=== PATIENT | male | born 1935 | race Caucasian/White ===

== ENCOUNTER → 2017-03-15 | Outpatient (CLI) | payer MEDICARE, MEDICAID ==
[~2017-03-15] MED LIST: AMOX1TAB16 PO; ASPI81TA2 PO; CALC-747 PO; DOCU100T PO; DRON2.5C11 PO; GUAI600T PO; HYDR-4078 PO; LORA10TA62 PO; OMEP20TA2 PO; ONDA-55 PO; OXYC20TA76 PO; POLY17PO6 PO; PRED5TAB PO; TAMS0.4C47 PO
--- NOTE | 2017-03-15 14:00 | DI ---
Indication: ITS.REASON: C61 PROSTATE CA PROCEDURE: NM BONE SCAN, WHOLE BODY: Encounter: Subsequent Comparison: September 24, 2016 Technique: 27.1 mCi of Tc-99m MDP was administered intravenously. Anterior and posterior planar whole-body and spot images were obtained. FINDINGS: Abnormal distribution of tracer with a "metastatic super scan" appearance. Decreased renal and bladder uptake. Diffuse osseous metastases have worsened since the prior study with larger and more numerous metastatic lesions involving both humeri and femurs. Prominent involvement of the right greater trochanteric area is new. Bilateral rib and vertebral uptake has also progressed in the interval. Areas of calvarial uptake are seen near the vertex. Numerous thoracic and lumbar vertebral bodies show regions of abnormal uptake. Uptake in the left SI joint region and left iliac wing is similar to the prior study. Impression: New and worsening diffuse metastatic disease, greatest in the humeri and femurs. .
== END ==
LOC: IMA 10:02
PROVIDERS: ATTEND Internal Medicine Hematology & Oncology
DX: C61 Malignant neoplasm of prostate (principal); C79.51 Secondary malignant neoplasm of bone
CPT/HCPCS: 78306; A9503

== ENCOUNTER 2017-04-06 07:38 | Observation (INO) | payer MEDICARE, MEDICAID ==
[~2017-04-06] VITALS: Ht 162.6 cm; Wt 58.0 kg
--- OUTSIDE RECORDS SUMMARY | 2017-04-06 07:41 | XMS REPORT | Continuity of Care Document ---
Author Author [facility] Address Unknown Phone Unavailable Support Name Relationship Address Phone DARELL CASTREJON MD Caregiver [address] [place] [address] LEROY FRANCIS Next Of Kin [address] [place] [address] Insurance Providers Payer Name Policy Number Subscriber Name Relationship [employer] Gold Choice [id number] Delma Francis 18 Self / Same As Patient Jessica [employer] [id number] Delma Francis 18 Self / Same As Patient Advance Directives Directive Response Recorded Date/Time Advanced Directives Yes 03/23/17 9:59am Type Durable Power of Leadlighter 03/23/17 9:59am Chief Complaint and Reason for Visit Chief Complaint Eye Complaint Reason for Visit [id number] Problems Active Problems Medical Problem Onset Date Status Stye Unknown Acute Medications Current Home Medications Medication Dose Units Route Directions Days/Qty Instructions Start Date Dronabinol 2.5 Mg 2.5 Mg ORAL Twice A Day 03/23/17 Omeprazole Magnesium 20 Mg 20 Mg ORAL Twice A Day 03/23/17 Oxycodone Hcl 30 Mg 30 Mg ORAL As Needed 03/23/17 Prednisone 5 Mg 5 Mg ORAL Daily 03/23/17 Acetaminophen/Hydrocodone Bitart 1 Ea 1 Tab ORAL As Needed as needed for Pain 03/23/17 Calcium Carbonate/Vitamin D3 1 Each 1 Each ORAL Daily 03/23/17 Loratadine 10 Mg 10 Mg ORAL Daily 03/23/17 Docusate Sodium 100 Mg 200 Mg ORAL As Needed 03/23/17 Aspirin 81 Mg 81 Mg ORAL Daily 03/23/17 Tamsulosin Hcl 0.4 Mg 0.4 Mg ORAL 4X Day Before Meals/At Bedtime 05/04 Polymyxin B Sulfate/Tmp 10 Ml 2-3 Drops OPTHALMIC Four Times Daily 10 03/23/17 Cephalexin Monohydrate 500 Mg 500 Mg ORAL Three Times A Day 21 17 Social History Query Response Start Date Stop Date Smoking Status Never smoker Hospital Discharge Instructions No hospital discharge instructions. Plan of Care Discharge Date 03/23/17 10:38am Disposition 01 HOME OR SELF-CARE Condition at Discharge Stable Instructions/Education Provided Katelynn (Tuckerdeolum) Prescriptions See Medication Section Additional Instructions/Education use the eye drops for 5-7 days. Recheck with eye Dr if not improving within 3-5 days. Continue current meds and treatments as prescribed. Warm moist packs Some of your test results may not be complete prior to your leaving the Emergency Department. The Emergency Department is not authorized to give test results over the phone. Please contact the doctor's office listed in this packet of information for your final results. Follow up with your primary care physician or return to the Emergency Department for worsening or worrisome symptoms. * Emergency Department phone number: [phone], x [phone]* MEDICAL RECORD If you need copies of your X-rays, call [phone]. If you need copies of your medical record, including lab results, a signed authorization for release of records will be required. A telephone call for release of Health Information is not allowed. BILLING Billing can sometimes be confusing and frustrating. To help avoid confusion in the future, please take a moment to acquaint yourself with the billing parties for services. SERVICE BILLING [facility] [employer] Emergency Room Services [facility] Physician Services [facility] X-rays [facility] Patients will receive bills for services from the appropriate provider. If you have any questions about your [facility] bill, our staff will be happy to assist you. Please call [phone], and ask for the billing department. THANK YOU for choosing [facility] as your emergency care provider! Care Plan and Goals ~~Discharge Care Plan~~ Problem: Eye infection/discharge Goal: Both eyes will be free of infection/discharge. Instructions: Use good handwashing before and after working with your eye(s). Take medication(s) as directed. Follow physician discharge instructions. Functional Status No functional status results. Allergies, Adverse Reactions, Alerts No known allergies. Immunizations No immunization records. Vital Signs Acute Vital Signs Vital Response Date/Time Temperature (Fahrenheit) 98.0 03/23/2017 10:38am Pulse 88 bpm 03/23/2017 10:38am Respirations 18 03/23/2017 10:38am Height 5 ft 4 in Weight 130 lb Body Mass Index 22.0 kg/m^2 Results No known relevant diagnostic tests, laboratory data and/or discharge summary. Procedures No known history of procedures. Encounters Encounter Location Arrival/Admit Date Discharge/Depart Date Attending Provider Departed Emergency Room [facility] 03/23/17 9:46am 03/23/17 10:38am DARELL CASTREJON MD Recent Diagnosis
--- OUTSIDE RECORDS SUMMARY | 2017-04-06 07:41 | XMS REPORT | Continuity of Care Document ---
Author Author [facility] Address Unknown Phone Unavailable Support Name Relationship Address Phone ENMANUEL GUERRA MD Caregiver [address] [place] [address] Unavailable ENMANUEL GUERRA MD Caregiver [address] [place] [address] Unavailable JAGDISH BENOIT MD Caregiver [address] [place] [address] Unavailable VILMA LEONG MD Caregiver [address] [place] [address] Unavailable ANA FRANCIS Next Of Kin [address] [place] [address] Insurance Providers Guarantor Delma Francis Address [address] [place] [address] Email DENIED/NO TO PT PORT/NO EMAIL Payer [employer]humana Gold P[employer]s Policy Number [id number] Subscriber's Name Delma Francis Relationship 18 Self Effective Date 15 Advance Directives Directive Response Recorded Date/Time Advanced Directives Type DPOA for Healthcare Unable to Obtain 10/17/16 9:35am Ordered Resuscitation Status Do Not Resuscitate 10/17/16 12:39pm Resuscitation Documents on File No 10/17/16 1:45pm DPOA for Healthcare Only Y DAUGHTER-MJ 10/17/16 1:45pm Living Will No 10/17/16 1:45pm Problems Active Problems Medical Problem Onset Date Status Acute respiratory failure with hypoxia Unknown Resolved Bone metastases Unknown Chronic Chronic back pain Unknown Chronic Chronic steroid use Unknown Chronic Edema of upper extremity Unknown Acute History of kidney stones Unknown Resolved Hypocalcemia Unknown Acute Hypokalemia Unknown Resolved Immunocompromised patient Unknown Acute Macrocytic anemia Unknown Prostate cancer Unknown Chronic Septic shock Unknown Resolved Severe sepsis Unknown Acute Tachycardia Unknown Resolved Past Problems Medical Problem Onset Date Sepsis Unknown Medications Current Home Medications Medication Dose Units Route Directions Days Qty Instructions Start Date Amox Tr/Potassium Clavulanate (Amox Tr-K Clv 875-125 Mg Tab) 875 Mg Tablet 875 Mg Oral Twice A Day for Infection 7 10/23/16 Aspirin 81 Mg Tab.chew 81 Mg Oral Daily 10/17/16 Calcium Carbonate/Vitamin D3 (Calcium 600 + Vit D 400 Tablet) 1 Each Tablet 1 Tab Oral Twice A Day 100 Tablet 10/23/16 Docusate Sodium 100 Mg Tablet 200 Mg Oral Daily 10/17/16 Dronabinol 2.5 Mg Capsule 2.5 Mg Oral Twice A Day 10/17/16 Guaifenesin (Mucinex) 600 Mg Tbbp.12hr 600 Mg Oral Twice A Day for Congestion 10 10/23/16 Hydrocodone/Acetaminophen ([place] 10-325 Tablet) 10-325 Tablet 1 Tab Oral Four Times Daily 10/17/16 Loratadine (Claritin) 10 Mg Tablet 10 Mg Oral Daily 10/17/16 Omeprazole Magnesium (Prilosec Otc) 20 Mg Tablet.dr 20 Mg Oral Twice A Day 10/17/16 Ondansetron Hcl 4 Mg Tablet 4 Mg Oral Q6h/0300,0900,1500,2100 as needed for Nausea 30 Tablet 10/23/16 Oxycodone Hcl (Oxycodone Hcl Er) 20 Mg Tab.er.12h 20 Mg Oral Twice A Day 10/17/16 Polyethylene Glycol 3350 (Miralax) 17 Gm Powd.pack 17 G Oral Daily 10/17/16 Prednisone 5 Mg Tablet 5 Mg Oral Twice A Day 10/17/16 Tamsulosin Hcl 0.4 Mg Cap.er.24h 0.4 Mg Oral Bedtime 10/17/16 Past Home Medications Medication Directions Ordered Status Calcium Carbonate/Vitamin D3 (Calcium 600 + Vit D 200 Tablet) 1 Each Tablet, 1 Tab Oral Daily 10/17/16 Discontinued Social History Social History Problem Response Recorded Date/Time Onset Date Status Chronic narcotic use 10/17/2016 4:57pm Unknown Active Reason for Hospitalization Sepsis 10/23/2016 3:09pm Not Applicable Not Applicable Hx Alcohol Use No 10/17/2016 10:13am Not Applicable Not Applicable Has the pt used tobacco in the last 12 months No 10/17/2016 1:39pm Not Applicable Not Applicable Query Response Start Date Stop Date Smoking Status Never smoker Hospital Discharge Instructions Instructions: Care Instructions: Reason for Hospitalization: Sepsis I was in the hospital because (patient own words): UNABLE TO SAY Discharge Diet: Regular Discharge Activity: As tolerated - O2 at 2L with activities Follow Up Appointments: Dr Avila on 10/24/2016 Dr Leong in 1 week [phone] 10/30/16 10:30 WITH DU. Pending Lab / Results: Follow up w/ your PCP Patient Instructions: Mucinex 600mg twice a day for 5 days, then as needed for congestion. Start Augmentin this evening Deep breathing excersises 6 times a day. May follow up on ECHO report with Dr Leong Wound/Incision Care: n/a Durable Medical Equipment: O2 at 2L with ambulation Pain Management/Treatment: Continue prior pain medications Expected Signs/Symptoms: Improvement of respiratory and functional status Notify Physician If: Temp >100.4. Intractable n/v. During Business Hours:: Please call the physician's office at After Business Hours:: Please call [phone] and have the tamper operator page the physician. Condition at time of discharge: Good Plan of Care Discharge Date 10/23/16 4:53pm Disposition 01 DISCHARGED HOME, SELF-CARE Instructions/Education Provided DI for Sepsis -- Adult Prescriptions See Medication Section Care Plan and Goals See Discharge Instructions Section Functional Status Query Response Date Recorded Mobility Status Ambulatory October 23, 2016 3:09pm Assistive Devices None October 23, 2016 3:09pm Activity Limitations Weakness Fatigue October 23, 2016 3:09pm Feeding Ability Independent October 23, 2016 3:09pm Toileting Ability Independent October 23, 2016 3:09pm Grooming Ability Independent October 23, 2016 3:09pm Dressing Ability Independent October 23, 2016 3:09pm Driving Ability Independent October 23, 2016 3:09pm Housework Ability Assist October 23, 2016 3:09pm Meal Preparation Ability Assist October 23, 2016 3:09pm Stair Climbing Ability Assist October 23, 2016 3:09pm Ability to complete ADL's impeded by No change October 23, 2016 3:09pm Cognitive/Perceptual Impairments Impaired vision October 23, 2016 3:09pm Visual Assistive Devices Glasses October 23, 2016 1:25pm Allergies, Adverse Reactions, Alerts Allergen Type Severity Reaction Status Last Updated Iodinated Contrast Media - IV Dye Allergy Unknown Active 10/17/16 Immunizations Query Response on File Recorded Date/Time Hx Influenza Vaccination No 10/17/16 1:39pm Hx Pneumococcal Vaccination UNKNOWN 10/17/16 1:39pm Hx Influenza Vaccination No 10/17/16 1:39pm Vital Signs Acute Vital Signs Vital Response Date/Time Temperature (Fahrenheit) 99.0 deg F (96.8 - 99.1) 10/23/2016 8:00am Temperature (Calculated Celsius) 37.12371 degrees C (36.0 - 37.3) 10/23/2016 8:00am Pulse Rate (adult) 113 bpm (60 - 100) 10/23/2016 11:35am Respiratory Rate 17 breaths/min (10 - 20) 10/23/2016 11:35am O2 Sat by Pulse Oximetry 91 % (90 - 100) 10/23/2016 11:35am Oxygen Delivery Method Room Air 10/23/2016 5:52am Oxygen Delivery Method Room Air 10/23/2016 11:35am Oxygen Flow Rate 1.00 L/min 10/18/2016 7:30am Blood Pressure 107/65 mm Hg 10/23/2016 11:35am Blood Pressure Source Arterial Line 10/23/2016 8:00am Height (Feet) 5 feet 10/23/2016 1:08pm Height (Inches) 7.00 inches 10/23/2016 1:08pm Weight (Kilograms) 58.400 kg 10/23/2016 8:00am Body Mass Index (BMI) 20.0 10/17/2016 1:37pm Results Laboratory Results Test Name Result Units Flags Reference Collection Date/Time Result Date/ Time Comments White Blood Count 13.2 T/MM3 D H 4.5-11.0 10/23/2016 4:33am 10/23/2016 5: 12am Red Blood Count 3.06 M/MM3 L 4.50-5.90 10/23/2016 4:33am 10/23/2016 5: 12am Hemoglobin 10.0 GM/DL L 13.5-17.5 10/23/2016 4:33am 10/23/2016 5:12am Hematocrit 30.3 % L 41-53 10/23/2016 4:33am 10/23/2016 5:12am Mean Corpuscular Volume 99.0 UM3 80-100 10/23/2016 4:33am 10/23/2016 5: 12am Mean Corpuscular Hemoglobin 32.7 UUG 26-34 10/23/2016 4:33am 2015 5:12am Mean Corpuscular Hemoglobin Concent 33.0 GM/DL 31-37 10/23/2016 4:3310/23/2016 5:12am RDW Standard Deviation 55.2 FL H 36.9-50.2 10/23/2016 4:3310/23/2016 5:12am Platelet Count 299 T/MM3 130-400 10/23/2016 4:3310/23/2016 5:12am Mean Platelet Volume 9.2 UM3 L 9.4-12.4 10/23/2016 4:3310/23/2016 5: 12am Neutrophils (%) (Auto) 72.7 % H 33-66 10/23/2016 4:3310/23/2016 5: 12am Lymphocytes (%) (Auto) 16.0 % L 23-45 10/23/2016 4:3310/23/2016 5: 12am Monocytes (%) (Auto) 10.1 % H 0-9.0 10/23/2016 4:3310/23/2016 5:12am Eosinophils (%) (Auto) 0.3 % 0-4 10/23/2016 4:3310/23/2016 5:12am Basophils (%) (Auto) 0.1 % 0-2 10/23/2016 4:3310/23/2016 5:12am Immature Granulocyte % (Auto) 0.8 % H 0.0-0.5 10/23/2016 4:332015 5:12am Absolute Neutrophils (auto) 9.6 T/MM3 H 1.8-7.7 10/23/2016 4:332015 5:12am Absolute Lymphocytes (auto) 2.1 T/MM3 1-4.8 10/23/2016 4:332015 5:12am Absolute Monocytes (auto) 1.3 T/MM3 H 0-0.8 10/23/2016 4:332015 5:12am Absolute Eosinophils (auto) 0.0 T/MM3 0-0.5 10/23/2016 4:332015 5:12am Absolute Basophils (auto) 0.0 T/MM3 0-0.2 10/23/2016 4:3310/23/2016 5:12am Absolute Immature Granulocyte (auto 0.10 T/MM3 H 0.00-0.03 10/23/2016 4: 33am 10/23/2016 5:12am Neutrophils % (Manual) 77.1 % H 33-66 10/19/2016 1:55am 10/19/2016 2: 07am Band Neutrophils % 6.0 % 0-6 10/18/2016 4:55am 10/18/2016 6:34am Lymphocytes % (Manual) 10.4 % L 23-45 10/19/2016 1:55am 10/19/2016 2: 07am Monocytes % (Manual) 12.0 % H 0-9.0 10/19/2016 1:55am 10/19/2016 2:07am Eosinophils % (Manual) 0.0 % 0-4 10/19/2016 1:55am 10/19/2016 2:07am Basophils % (Manual) 0.0 % 0-2 10/19/2016 1:55am 10/19/2016 2:07am Metamyelocytes % 1.0 % H 0-0 10/18/2016 4:55am 10/18/2016 6:34am Band Neutrophils # 0.5 T/MM3 10/18/2016 4:55am 10/18/2016 6:34am Absolute Neutrophils (Manual) 6.6 T/MM3 1.8-7.7 10/19/2016 1:55am 10/19 2:07am Lymphocytes # (Manual) 0.9 T/MM3 L 1-4.8 10/19/2016 1:55am 10/19/2016 2: 07am Monocytes # (Manual) 1.0 T/MM3 H 0-0.8 10/19/2016 1:55am 10/19/2016 2: 07am Eosinophils # (Manual) 0.0 T/MM3 0-0.5 10/19/2016 1:55am 10/19/2016 2: 07am Basophils # (Manual) 0.0 T/MM3 0-0.2 10/19/2016 1:55am 10/19/2016 2: 07am Metamyelocytes # 0.1 T/MM3 10/18/2016 4:55am 10/18/2016 6:34am Red Cell Morphology Comment NORMAL 10/19/2016 1:55am 10/19/2016 2: 07am Anisocytosis 1+ 10/18/2016 4:55am 10/18/2016 6:34am Icterus Index < 2 0-7 10/23/2016 4:33am 10/23/2016 5:26am Chemistry Specimen Hemolysis < 15 0-25 10/23/2016 4:33am 10/23/2016 5 :26am 0-25: Specimen Exhibited No Hemolysis. Turbidity < 20 0-20 10/23/2016 4:33am 10/23/2016 5:26am Sodium Level 142 MEQ/L 134-144 10/23/2016 4:33am 10/23/2016 5:26am Potassium Level 3.4 MEQ/L L 3.6-5 10/23/2016 4:33am 10/23/2016 5:26am Chloride Level 103 MEQ/L 98-107 10/23/2016 4:33am 10/23/2016 5:26am Carbon Dioxide Level 28 MEQ/L 22-30 10/23/2016 4:33am 10/23/2016 5: 26am Anion Gap 11 MEQ/L 5-15 10/23/2016 4:33am 10/23/2016 5:26am Blood Urea Nitrogen 17.0 MG/DL 9-20 10/23/2016 4:33am 10/23/2016 5: 26am Creatinine 0.6 MG/DL L 0.8-1.5 10/23/2016 4:33am 10/23/2016 5:26am BUN/Creatinine Ratio 28 RATIO H 6-26 10/23/2016 4:33am 10/23/2016 5: 26am Glomerular Filtration Rate Calc 129 10/23/2016 4:33am 10/23/2016 5: 26am Glucose Level 104 MG/DL 75-110 10/23/2016 4:33am 10/23/2016 5:26am Calculated Osmolality 275 MOSM/KG 261-280 10/23/2016 4:33am 10/23/2016 5:26am Calcium Level 6.8 MG/DL L 8.4-10.2 10/23/2016 4:33am 10/23/2016 5:26am Phosphorus Level 2.0 MG/DL L 2.5-4.5 10/22/2016 4:22am 10/22/2016 5: 10am Total Bilirubin 0.50 MG/DL 0.20-1.30 10/18/2016 4:55am 10/18/2016 5: 30am Alkaline Phosphatase 87 U/L D 38-126 10/18/2016 4:55am 10/18/2016 5:32am Total Protein 4.9 G/DL L 6.3-8.2 10/18/2016 4:55am 10/18/2016 5:30am Albumin 2.6 G/DL L 3.5-5.0 10/22/2016 4:22am 10/22/2016 5:10am Globulin 2.4 G/DL 2.4-3.6 10/18/2016 4:55am 10/18/2016 5:30am Albumin/Globulin Ratio 1.0 RATIO L 1.1-2.2 10/18/2016 4:55am 10/18/2016 5:30am Aspartate Amino Transf (AST/SGOT) 62 U/L H 17-59 10/18/2016 4:55am 10/18 5:30am Alanine Aminotransferase (ALT/SGPT) 29 U/L 21-72 10/18/2016 4:55am 11/2015 5:30am C-Reactive Protein 8.2 MG/L 0-9 10/17/2016 10:22am 10/17/2016 11:03am Magnesium Level 2.0 MG/DL 1.6-2.3 10/22/2016 4:22am 10/22/2016 6:00am Plasma Lactate 0.9 MMOL/L 0.6-2.2 10/18/2016 4:55am 10/18/2016 5:28am Procalcitonin 0.24 NG/ML 10/17/2016 10:41am 10/17/2016 11:34am PCT < /=0.5 ng/mL - sepsis not likely; PCT >0.5 and </=2 ng/mL - sepsis possible; PCT >2 ng/mL - sepsis likely; PCT >/=10 ng/mL - systemic inflammatory response - sepsis or septic shock highly indicated. Vitamin B12 Level > 1000 PG/ML H 239-931 10/19/2016 1:55am 10/22/2016 2: 44am Folate 15.9 NG/ML 2.76-20 10/19/2016 1:55am 10/22/2016 2:44am NORMAL ADULT RANGE: 2.76->20 ng/mL Vancomycin Level Trough 14.66 UG/ML L 15-20 10/19/2016 1:55am 2015 2:16am MRSA Specimen Source NASAL 10/18/2016 4:55am 10/18/2016 8:52am Methicillin-Resist S.aureus DNA PCR NEGATIVE NEGATIVE 10/18/2016 4: 55am 10/18/2016 8:52am Adenovirus (PCR) NEGATIVE NEGATIVE 10/17/2016 6:05pm 10/17/2016 8: 13pm Coronavirus Type 229E (PCR) NEGATIVE NEGATIVE 10/17/2016 6:05pm 10/17 8:13pm Coronavirus Type HKU1 (PCR) NEGATIVE NEGATIVE 10/17/2016 6:05pm 10/17 8:13pm Coronavirus Type NL63 (PCR) NEGATIVE NEGATIVE 10/17/2016 6:05pm 10/17 8:13pm Coronavirus Type OC43 (PCR) NEGATIVE NEGATIVE 10/17/2016 6:05pm 10/17 8:13pm Human Metapneumovirus (PCR) NEGATIVE NEGATIVE 10/17/2016 6:05pm 10/17 8:13pm Enterovirus/Rhinovirus (PCR) NEGATIVE NEGATIVE 10/17/2016 6:05pm 8:13pm Influenza Virus Type A (PCR) NEGATIVE NEGATIVE 10/17/2016 6:05pm 8:13pm Influenza Virus Type B (PCR) NEGATIVE NEGATIVE 10/17/2016 6:05pm 8:13pm Parainfluenza Type 1 (PCR) NEGATIVE NEGATIVE 10/17/2016 6:05pm 2015 8:13pm Parainfluenza Type 2 (PCR) NEGATIVE NEGATIVE 10/17/2016 6:05pm 2015 8:13pm Parainfluenza Type 3 (PCR) NEGATIVE NEGATIVE 10/17/2016 6:05pm 2015 8:13pm Parainfluenza Type 4 (PCR) NEGATIVE NEGATIVE 10/17/2016 6:05pm 2015 8:13pm Respiratory Syncytial Virus (PCR) NEGATIVE NEGATIVE 10/17/2016 6:05pm 10/17/2016 8:13pm Bordetella parapertussis DNA (PCR) NEGATIVE NEGATIVE 10/17/2016 6: 05pm 10/17/2016 8:13pm Chlamydia pneumoniae DNA (PCR) NEGATIVE NEGATIVE 10/17/2016 6:05pm 8:13pm Mycoplasma pneumoniae (PCR) NEGATIVE NEGATIVE 10/17/2016 6:05pm 10/17 8:13pm Urine Collection Type VOIDED-NOT CC-MIDSTR 10/17/2016 11:48am 10/17 11:54am Urine Color YELLOW YELLOW 10/17/2016 11:48am 10/17/2016 11:54am Urine Turbidity CLEAR CLEAR 10/17/2016 11:48am 10/17/2016 11:54am Urine Specific [place] 1.020 1.015-1.025 10/17/2016 11:48am 2015 11:54am Urine pH 6.0 5.0-8.0 10/17/2016 11:48am 10/17/2016 11:54am Urine Leukocyte Esterase NEGATIVE NEGATIVE 10/17/2016 11:48am 2015 11:54am Urine Nitrite NEGATIVE NEGATIVE 10/17/2016 11:48am 10/17/2016 11: 54am Urine Protein NEGATIVE NEGATIVE 10/17/2016 11:48am 10/17/2016 11: 54am Urine Glucose (UA) NEGATIVE NEGATIVE 10/17/2016 11:48am 10/17/2016 11 :54am Urine Ketones NEGATIVE NEGATIVE 10/17/2016 11:48am 10/17/2016 11: 54am Urine Urobilinogen 0.2 EU/DL NORMAL 10/17/2016 11:48am 10/17/2016 11: 54am Urine Bilirubin NEGATIVE NEGATIVE 10/17/2016 11:48am 10/17/2016 11: 54am Urine Blood TRACE-INTACT A NEGATIVE 10/17/2016 11:48am 10/17/2016 11: 54am Urinalysis Comment MICROSCOPIC NOT IND. 10/17/2016 11:48am 2015 11:54am Glucometer 138 mg/dL H 75-110 10/19/2016 6:16am 10/22/2016 12:07pm Microbiology Results Procedure Source Organism/Result Collection Date/Time Result Date/Time Result Status Blood Culture Peripheral/Iv Start NO GROWTH AFTER 5 DAYS 10/17/2016 10: 40am 10/22/2016 10:47am Final Sputum Culture Sputum, Expectorated Sputum NORMAL RESPIRATORY TAINA 2015 4:23am 10/20/2016 12:52pm Final YEAST 10/19/2016 4:23am 10/20/2016 12:52pm Final Name: DELMA FRANCIS Unit #: [id number] : 1935 Sex: M Admit Date: 10/17/16 Loc / Svc: MED Discharge Date: DIAGNOSTIC IMAGING REPORT [facility] [id number]: ITS.REASON: superficial thrombosis this arm, now more swollen, rule out DVT PROCEDURE: US VENOUS DUPLEX, UPPER EXT LT: Encounter: Initial Comparison: October 19, 2016 Technique: Color Doppler duplex and grayscale sonographic imaging of the left upper extremity was performed. FINDINGS: There is no evidence for acute deep venous thrombosis in the left arm. Nonocclusive superficial thrombosis is again seen in the left cephalic vein. The left internal jugular, subclavian, axillary and paired brachial veins were evaluated; compression and augmentation were applied where possible. In addition, color and pulsed Doppler demonstrate appropriate spontaneous flow, cardiac pulsatility and variation with respiration. IMPRESSION: No evidence of acute DVT in the left upper extremity. . Procedures Procedure Status Date Provider(s) BONE IMAGING WHOLE BODY Completed 07/30/16 [id number]"TECHNETIUM TC-99M MEDRONATE, DIAGNOSTIC, PER STUDY DO Completed BONE IMAGING WHOLE BODY Completed 09/24/16 [id number]"TECHNETIUM TC-99M MEDRONATE, DIAGNOSTIC, PER STUDY DO Completed Encounters Encounter Location Arrival/Admit Date Discharge/Depart Date Attending Provider Discharged Inpatient [facility] 10/17/16 12:38pm 10/23/16 4:53pm ENMANUEL GUERRA MD Registered [facility] 09/24/16 8:24am SANA AVILA MD [facility] 07/30/16 9:05am SANA AVILA MD
--- OUTSIDE RECORDS SUMMARY | 2017-04-06 07:41 | XMS REPORT | Referral Summary ---
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 Discharge Diagnosis: Sinus tachycardia Discharge Disposition: 01-Home or Self Care Attending Physician: Juany Love APRN Admitting Physician: Juany Love APRN Vital Signs Most recent to 1 oldest [Reference Range]: Temperature Tympanic 37.2 degC [36.6-38.1 degC] (11/13/16 10:19 AM) Peripheral Pulse 115 bpm Rate [60-100 bpm] *HI* (11/13/16 10:19 AM) Blood Pressure 102/64 mmHg [90-140/60-90 mmHg] (11/13/16 10:19 AM) SpO2 93 % (11/13/16 10:19 AM) Problem List Condition Effective Dates Status Health Status Informant Back pain, Active chronic(Confirmed) GERD Active patient (gastroesophageal reflux disease)(Confirmed) History of prostate Active cancer(Confirmed) Primary prostate Active cancer with metastasis from prostate to other site(Confirmed)1 Idiopathic pulmonary Active fibrosis(Confirmed) 1Metastases to the bone Allergies, Adverse Reactions, Alerts Substance Reaction Severity Status codeine Nausea Active Medications aspirin 81 mg, Oral, Daily, 0 Refill(s) Start Date: 10/24/16 Status: Ordered Calcium 600+D 600 mg-200 intl units oral tablet 1 tabs, Oral, BID, # 60 tabs, 0 Refill(s), other reason (Rx) Start Date: 10/30/16 Status: Ordered Claritin 10 mg, Oral, Daily, 0 Refill(s) Start Date: 10/24/16 Status: Ordered Coreg 3.125 mg oral tablet 3.125 mg 1 tabs, Oral, Daily, # 30 tabs, 0 Refill(s), Pharmacy: [id number], 1 tabs Oral Daily Start Date: 11/13/16 Status: Ordered guaiFENesin 600 mg oral tablet, extended release 600 mg 1 tabs, Oral, q12hr, 0 Refill(s) Start Date: 10/24/16 Status: Ordered Marinol 2.5 mg, Oral, BID, 0 Refill(s) Start Date: 01/12/16 Status: Ordered [place] 10 mg-325 mg oral tablet 1 tabs, Oral, QID, # 150 tabs, 0 Refill(s) Start Date: 11/08/16 Status: Ordered OxyCONTIN 20 mg oral tablet, extended release 20 mg 1 tabs, Oral, q12hr, 0 Refill(s) Start Date: 01/12/16 Status: Ordered predniSONE 5 mg oral tablet 5 mg 1 tabs, Oral, BID, 0 Refill(s) Start Date: 01/12/16 Status: Ordered PriLOSEC 20 mg oral delayed release capsule 20 mg 1 caps, Oral, BID, # 180 caps, 2 Refill(s), Pharmacy: [facility], 1 caps Oral BID Start Date: 05/22/16 Status: Ordered tamsulosin 0.4 mg oral capsule See Instructions, TAKE 1 CAPSULE DAILY, # 90 caps, 2 Refill(s), Pharmacy: [facility], TAKE 1 CAPSULE DAILY Start Date: 05/22/16 Status: Ordered Zytiga 4 capsules, Oral, Daily, 0 Refill(s) Start Date: 11/13/16 Status: Ordered Results No data available for this section Immunizations No data available for this section Procedures Procedure Date Related Diagnosis Body Site Cystoscopy with Transurethral Prostatectomy1 07/26/15 BACK SURGERY2 GALLBL;ADDER KIDNEY STONES REMOVED 1auto-populated from documented surgical case 2X 4 Social History Social History Type Response Smoking Status Former smoker Assessment and Plan Extracted from: Title: Office Visit Author: Juany Love APRN Date: 11/13/16 Note-tachycardia Assessment/Plan 1.Sinus tachycardia Mild. Trial of low-dose of beta blockerto improve rate control. Add Coreg 3.125 mg daily. Continue to monitor heart rate and blood pressure at home periodically. Ifhe develops any orthostasis they are to let us know. Requested daughter who is a nurse call and give us an update in 2 weeks. 2.Idiopathic pulmonary fibrosis Continue oxygen as needed for comfort. 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 Carrillo. 4.Malignant bone pain Well controlled with [place]. Refill last Saturday. Encouraged patient to utilize as needed. Using appropriately. 5.Bronchiectasis May need to consider adding bronchodilatorif increased cough or shortness of breath. Monitor.
--- NOTE | 2017-04-06 07:42 | NUR ---
PROVIDER DR. BENOIT IN ROOM WITH PT.
--- OUTSIDE RECORDS SUMMARY | 2017-04-06 07:42 | XMS REPORT | Continuity of Care Document ---
Author Author [facility] Organization [facility] Address Unknown Phone Unavailable Allergies Active Description Code Type Severity Reaction Onset Reported/Identified Relationship to Patient Clinical Status Yes codeine NKMA N/A N/A 07/26/2015 Yes codeine NKMA N/A N/A 07/26/2015 Medications Medication Packaging Start Date Stop Date Route Dosage Sig HYDROcodone-acetaminophen([place] 7.5 mg-325 mg oral tablet) 04/27/2014 05/27/2014 See Instructions, 1-2 tabs Oral q 4-6 hr prn pain not to exceed 4000 mg acetaminophen per day, 50 tabs bicalutamide(Casodex 50 mg oral tablet) 2 tabs 04/29/201408/23 Oral 100 mg 2 tabs, Oral, q24hr tamsulosin(tamsulosin 0.4 mg oral capsule) 1 caps 04/29/2014 Oral 0.4 mg 1 caps, Oral, Daily, 90 caps dutasteride(Avodart 0.5 mg oral capsule) 1 caps 04/29/201404/2014 Oral 0.5 mg 1 caps, Oral, Daily, 90 caps omeprazole(PriLOSEC 20 mg oral delayed release capsule) 1 caps 04/29/2014 08/23/2014 Oral 20 mg 1 caps, Oral, BID, 180 Each aspirin(aspirin) 04/29/2014 08/23/2014 Oral 325 mg 325 mg, Oral, Daily denosumab(denosumab injection) 05/04/2014 05/04/2014 SubCutaneous 120 mg 120 mg, SubCutaneous, Once HYDROcodone-acetaminophen([place] 7.5 mg-325 mg oral tablet) 1 tabs 06/01/2014 07/15/2014 Oral 1 tabs, Oral, q6hr, 50 tabs, PRN: as needed for pain denosumab(Xgeva 120 mg/1.7 mL subcutaneous solution) 1.7 mL 06/03/2014 07/28/2015 SubCutaneous 120 mg 1.7 mL, SubCutaneous, q4wk, 1.7 mL denosumab(denosumab injection) 06/03/2014 06/04/2014 SubCutaneous 120 mg 120 mg, SubCutaneous, q4wk denosumab(denosumab injection) 07/02/2014 07/03/2014 SubCutaneous 120 mg 120 mg, SubCutaneous, q4wk HYDROcodone-acetaminophen(HYDROcodone-acetaminophen 7.5 mg- 325 mg oral tablet) 1 tabs 07/15/2014 07/20/2014 Oral 1 tabs, Oral, q6hr, 30 tabs leuprolide(Lupron Depot 45 mg/6 months intramuscular injection, extended release) 08/20/2014 08/21/2014 IntraMuscular 45 mg 45 mg, IntraMuscular, q6mo aspirin(Aspir-Low 81 mg oral delayed release tablet) 1 tabs 08/23/2014 01/12/2016 Oral 81 mg 1 tabs, Oral, Daily, 30 tabs HYDROcodone-acetaminophen([place] 5 mg-325 mg oral tablet) 1 tabs 08/23/2014 08/23/2014 Oral 1 tabs, Oral, q6hr, 70 tabs, PRN: as needed for pain omeprazole(PriLOSEC 20 mg oral delayed release capsule) 1 caps 08/23/2014 07/20/2015 Oral 20 mg 1 caps, Oral, BID, 60 caps leuprolide(Lupron Depot 45 mg/6 months intramuscular injection, extended release) 08/24/2014 07/28/2015 IntraMuscular IntraMuscular, q6mo, Every 6months tamsulosin(tamsulosin 0.4 mg oral capsule) 1 caps 08/24/2014 Oral 0.4 mg 1 caps, Oral, Daily, 30 caps HYDROcodone-acetaminophen([place] 5 mg-325 mg oral tablet) 1 tabs 08/24/2014 10/11/2014 Oral 1 tabs, Oral, q4hr, PRN: as needed for pain HYDROcodone-acetaminophen([place] 7.5 mg-325 mg oral tablet) 1 tabs 01/27/2015 02/25/2015 Oral 1 tabs, Oral, q4hr, 70 tabs, PRN: as needed for pain aspirin(aspirin 325 mg oral tablet) tabs 05/12/20152014 Oral mg mg=tabs, Oral, Daily, sometimes will take instead of 81 mg, 0 Refill (s) HYDROcodone-acetaminophen([place] 7.5 mg-325 mg oral tablet) 1 tabs 05/12/2015 06/17/2015 Oral 1 tabs, Oral, TID, for 30 days, PRN: as needed for pain, 70 tabs, 0 Refill(s) Lactated Ringers Injection(Lactated Ringers Injection 1, 000 mL) 1,000 mL 201407/26/2015 IV 20 mL/hr, IV, Stop: 07/26/15 12:00:00 CDT HYDROcodone-acetaminophen([place] 7.5 mg-325 mg oral tablet) 1 tabs 07/26/2015 07/27/2015 Oral 1 tabs, Oral, TID, PRN: Pain aspirin(aspirin) 1 tabs 07/26/2015 07/28/2015 Oral 81 mg 81 mg= 1 tabs, Oral, Daily pantoprazole(Protonix) 1 tabs 07/26/2015 07/28/2015 Oral 40 mg 40 mg=1 tabs, Oral, Daily metoclopramide(Reglan) 2 mL 07/26/2015 07/28/2015 IV Push 10 mg 10 mg=2 mL, IV Push, q6hr, PRN: Nausea or Vomiting acetaminophen(acetaminophen) 2 tabs 07/26/2015 07/28/2015 Oral 650 mg 650 mg=2 tabs, Oral, q4hr, PRN: Pain Mild (1-3) ondansetron(Zofran) 2 mL 07/26/2015 07/26/2015 IV Push 4 mg 4 mg= 2 mL, IV Push, Once HYDROmorphone(HYDROmorphone) 1 mL 07/26/2015 07/26/2015 IV Push 1 mg 1 mg=1 mL, IV Push, q10min, PRN: Pain Severe (7-10) HYDROmorphone(Dilaudid) 0.5 mL 07/26/2015 07/26/2015 IV Push 0.5 mg 0.5 mg=0.5 mL, IV Push, q5min, PRN: Pain morphine(morphine 4 mg/mL syringe 1 mL) 0.5 mL 07/26/201507/26 IV Push 2 mg 2 mg=0.5 mL, IV Push, Once, PRN: Pain HYDROcodone-acetaminophen([place] 7.5 mg-325 mg oral tablet) 1 tabs 07/27/2015 07/28/2015 Oral 1 tabs, Oral, q6hr, PRN: Pain Moderate (4-6) pantoprazole(Protonix 40 mg oral delayed release tablet) 1 tabs 07/28/2015 01/12/2016 Oral 40 mg 40 mg=1 tabs, Oral, Daily, 0 Refill(s) oxyCODONE(OxyCONTIN 20 mg oral tablet, extended release) 1 tabs 01/12/2016 Oral 20 mg 20 mg=1 tabs, Oral, q12hr, 0 Refill(s) predniSONE(predniSONE 5 mg oral tablet) 1 tabs 01/12/2016 Oral 5 mg 5 mg=1 tabs, Oral, BID, 0 Refill(s) dronabinol(Marinol) 01/12/2016 Oral 2.5 mg 2.5 mg, Oral, BID , 0 Refill(s) docusate(docusate sodium 250 mg oral capsule) 1 caps 01/12/2016 10/24/2016 Oral 250 mg 250 mg=1 caps, Oral, BID, PRN: as needed for constipation , 20 caps, 0 Refill(s) calcium carbonate(calcium carbonate 600 mg oral tablet, chewable) 1 tabs 201510/24/2016 Chewed 600 mg 600 mg=1 tabs, Chewed, Daily, 0 Refill(s) abiraterone(Zytiga) 11/13/2016 Oral 4 capsules, Oral, Daily , 0 Refill(s) carvedilol(Coreg 3.125 mg oral tablet) 1 tabs 11/13/2016 Oral 3.125 mg 3.125 mg=1 tabs, Oral, Daily, 30 tabs, 0 Refill(s) Problems Date Dx Coded Attending Type Code Diagnosis Diagnosed By 07/29/2015 Pavel Navarrete Reason 185 MALIGNANT NEOPLASM OF PROSTATE 07/29/2015 Pavel Navarrete 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 07/29/2015 Pavel Navarrete Final 338.29 Other chronic pain 07/29/2015 Pavel Navarrete Final 530.81 ESOPHAGEAL REFLUX 07/29/2015 Pavel Navarrete Final 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00-4.00 Absolute Monocytes 1.19 10*3 0.20-0.80 Absolute Neutrophils 10.97 10*3 2.50- 7.00 Basophils 0 % 0-2 Eosinophils 1 % 0-6 HCT 34.1 % 40.0-54.0 HGB 11.2 g/dL 12.0-16.0 Lymphocytes 11 % 20-40 MCH 32.6 pg 26.0-34.0 MCHC 32.8 g/dL 32.0-36.0 MCV 99.1 fL 80.0-96.0 Monocytes 9 % 4-8 MPV 8.1 fL 8.8-14.8 Neutrophils 79 % 50-70 Platelet Count 394 K/uL 150-400 RBC 3.44 10*6/uL 3.70-5.20 RDW 15.2 % 0.0-14.5 WBC 13.8 K/uL 5.0-10.0 TSH with Reflex Free T4 - 10/30/16 11:28 TSH with Reflex Free T4 0.55 uIU/mL 0.35- 4.94 Comprehensive Metabolic Panel (CMP) - 10/30/16 11:28 Albumin 3.6 g/dL 3.4-4.8 Alkaline Phosphatase 168 U/L 40-150 ALT (SGPT) 13 U/L 0-55 Anion Gap 12 NA 3-20 AST (SGOT) 36 U/L 5-34 Bilirubin Total 0.5 mg/dL 0.2-1.2 BUN 21 mg/dL 8-26 Calcium 8.7 mg/dL 8.9-10.5 Chloride 105 mEq/L 99-111 CO2 25 mEq/L 23-31 Creatinine 0.75 mg/dL 0.72-1.25 Globulin 2.7 g/dL 1.8-4.0 Glucose 119 mg/dL 70-99 Potassium 4.5 mEq/L 3.5-5.2 Protein 6.3 g/dL 6.0-7.6 Sodium 142 mEq/L 135-144 eGFR - 10/30/16 11:28 eGFR >60 mL/min >60 Encounters ACCT No. Visit Date/Time Discharge Status Pt. Type Provider Facility Loc./Unit Complaint [id number] 02/12/2014 08:02:00 02/12/2014 23 :59:59 CLS Outpatient [id number] 01/15/2014 08:06:00 01/15/2014 23 :59:59 CLS Outpatient [id number] 12/24/2013 12:36:00 12/24/2013 23 :59:59 CLS Outpatient [id number] 12/16/2013 17:52:00 12/16/2013 23 :59:59 CLS Outpatient
--- OUTSIDE RECORDS SUMMARY | 2017-04-06 07:54 | XMS REPORT | Continuity of Care Document ---
Author Author [facility] Organization [facility] Address Unknown Phone Unavailable Allergies Active Description Code Type Severity Reaction Onset Reported/Identified Relationship to Patient Clinical Status Yes codeine NKMA N/A N/A 07/26/2015 Yes codeine NKMA N/A N/A 07/26/2015 Medications Medication Packaging Start Date Stop Date Route Dosage Sig HYDROcodone-acetaminophen([place] 7.5 mg-325 mg oral tablet) 04/27/2014 05/27/2014 [...] SubCutaneous 120 mg 120 mg, SubCutaneous, Once HYDROcodone-acetaminophen([place] 7.5 mg-325 mg oral tablet) 1 tabs [...] mg 1 tabs, Oral, Daily, 30 tabs HYDROcodone-acetaminophen([place] 5 mg-325 mg oral tablet) 1 tabs [...] mg 1 caps, Oral, Daily, 30 caps HYDROcodone-acetaminophen([place] 5 mg-325 mg oral tablet) 1 tabs 08/24/2014 10/11/2014 Oral 1 tabs, Oral, q4hr, PRN: as needed for pain HYDROcodone-acetaminophen([place] 7.5 mg-325 mg oral tablet) 1 tabs 01/27/2015 02/25/2015 Oral 1 tabs, Oral, q4hr, 70 tabs, PRN: as needed for pain aspirin(aspirin 325 mg oral tablet) tabs 05/12/20152014 Oral mg mg=tabs, Oral, Daily, sometimes will take instead of 81 mg, 0 Refill (s) HYDROcodone-acetaminophen([place] 7.5 mg-325 mg oral tablet) 1 tabs 05/12/2015 06/17/2015 Oral 1 tabs, Oral, TID, for 30 days, PRN: as needed for pain, 70 tabs, 0 Refill(s) Lactated Ringers Injection(Lactated Ringers Injection 1, 000 mL) 1,000 mL 201407/26/2015 IV 20 mL/hr, IV, Stop: 07/26/15 12:00:00 CDT HYDROcodone-acetaminophen([place] 7.5 mg-325 mg oral tablet) 1 tabs [...] mg=0.5 mL, IV Push, Once, PRN: Pain HYDROcodone-acetaminophen([place] 7.5 mg-325 mg oral tablet) 1 tabs [...] Procedures Code Description [place] [address] Cystourethroscopy, with fulguration (including cryosurgery or laser [...] Status Pt. Type Provider Facility Loc./Unit Complaint [id number] 02/12/2014 08:02:00 02/12/2014 23 :59:59 CLS Outpatient [id number] 01/15/2014 08:06:00 01/15/2014 23 :59:59 CLS Outpatient [id number] 12/24/2013 12:36:00 12/24/2013 23 :59:59 CLS Outpatient [id number] 12/16/2013 17:52:00 12/16/2013 23 :59:59 CLS Outpatient
[2017-04-06] MEDS ORDERED: NORMAL SALINE 1,000 ML IV ONE (08:00)
--- NOTE | 2017-04-06 08:10 | NUR ---
PROVIDER DR. BENOIT IN ROOM WITH PT.
--- NOTE | 2017-04-06 08:12 | ERPDOC ---
Departure Disposition Decision Date: April 06, 2017 Disposition Decision Time: 10:30 Disposition: 02 TO [facility] Impression Impression Impression: Primary Impression: Atrial fibrillation Atrial fibrillation type: unspecified Qualified Codes: I48.91 - Unspecified atrial fibrillation Additional Impressions: Dehydration Pulmonary fibrosis Tachycardia Severity: Moderate Condition: Improved Seen By: Physician only Referrals: VILMA LEONG MD (Family) Problems/Meds/Labs Reviewed?: Yes Medications reviewed and manag: Yes Follow up care ordered?: Yes Mental Status: Alert, Oriented Critical Care Note Total Time (mins): 42 Critical Care Spent: [id number] care of pt, Reviewing test results, Discuss the case w/staff, Documenting the MR, Discussion w/ family/DPOA During this visit the pt was: Critically Ill, At Risk of Deterioration HPI - General Medical General Stated Complaint: PAIN/NAUSEA Time Seen by Provider: 07:47 Source: patient, family Exam Limitations: no limitations HPI - General Medical Initial Comments 81-year-old male presents to the emergency department with a chief complaint of increasing bone chip. Patient has a history of prostate cancer with metastasis to the bone. Patient has had decreased oral intake over the past 24-48 hours as well. Patient describes his pain as moderate to severe in nature. It is achy. He notes that the pain improves with [place] and OxyContin. Patient denies any other complaints or associated symptoms. Patient is a do not resuscitate secondary to the prostate cancer. Patient was at home when his symptoms began. Symptoms have been persistent in nature since onset. Patient recently began a new chemotherapy regimen earlier this week. Patient denies any medical history other than prostate cancer and pulmonary fibrosis. His prostate cancer is being followed by Dr. Carrillo. Occurred At: home Onset: Gradual Allergies: Coded Allergies: Iodinated Contrast Media - Oral and (Verified Allergy, Unknown, 04/06/17) Past History Patient Surgical History Lithotripsy. Cholecystectomy. Multiple lumbar back surgeries (last surgery >15 yrs ago) Past Medical History Metabolic: cancer Respiratory: other (Pulmonary Fibrosis) Surgical History Denies Surgeries Family History Family History: Negative Vaccines Hx Influenza Vaccination: No Social History Smoking Status: Never smoker Does patient use chewing tobac: No Substance Use Type: does not use Marital Status: Sexuality: female partner Housing: house Current Occupational Status: retired Advance Directives: Yes DNR Review of Systems Constitutional Constitutional: DENIES: chills, fever Eyes General: DENIES: erythema, exudate Lids/Accessories: DENIES: erythema, swelling ENMT Ears: DENIES: drainage, erythema Hearing: DENIES: hearing loss Balance: DENIES: ataxia, falling to one side Sinuses: DENIES: congestion, pain Nose: DENIES: nosebleeds, pain Mouth/Throat: DENIES: painful swallowing, sore throat Teeth: DENIES: pain Jaw: DENIES: pain Cardiovascular Cardiac: DENIES: chest pain, dyspnea on exertion Rhythm/Rate: DENIES: irregular beat, palpitations Vascular: DENIES: pedal edema, unilateral swelling Pulmonary Respiratory: DENIES: cough, dyspnea, pleuritic chest pain, sputum GI Upper Abdomen: nausea, DENIES: pain, vomiting Lower Abdomen: DENIES: diarrhea, pain General: DENIES: dysuria, frequency Musculoskeletal General: pain, DENIES: joint pain, tenderness Integumentary Skin: DENIES: itching, rash Neurological General: DENIES: change in strength, headache, numbness, weakness Psychiatric Psychiatric: DENIES: emotional instability, suicidal ideation/attempt Endocrine Endocrine: DENIES: polydipsia, polyphagia Hematologic/Lymphatic Hematologic/Lymphatic: DENIES: frequent nosebleeds, lymphadenopathy Allergic/Immunological Allergic/Immunoligical: DENIES: allergic reactions, hives Physical Exam General General Nourishment: well nourished, well developed, appears stated age, no acute distress, adult General Body Habitus: well groomed Vitals and Pain First Documented Vital Signs Date Time Temp Pulse Resp B/P Pulse Ox O2 Delivery O2 Flow Rate FiO2 04/06/17 07:38 97.8 170 14 103/70 97 Room Air 04/06/17 08:00 2.00 Weight: Kilograms: Height (feet): 5 Height (inches): 7.00 Triage Pain Scale: RN VS reviewed by Provider: Yes Normal Exams: Head: Normocephalic w/o trauma Eyes: Pupils are PERRLA w/ EOMI, No scleral icterus, irritation, or foreign bodies noted ENMT: No facial trauma, nasal exudates, pharyngeal erythema, or exudates are noted Dental: No fractured, loose, or missing teeth noted Neck: Full range of motion, without adenopathy, JVD, bruits or thyromegaly Chest/Resp: Clear all knott, with good airflow, and symmetry bilaterally CV: without murmur or gallop, Pulses 2+ all extremities, capillary refill, <2 seconds all ext., no pedal edema noted Abdomen: Bowel sounds positive, soft, non-tender, non-distended, no hepatosplenomegaly, masses or bruits noted Lymphatic: No lymphadenopathy, or lymphedema noted Musculoskeletal: No tenderness, or deformity noted, good range of motion, all extremities Integumentary: No rashes, hives, or bruising noted, hair and nails, without abnormality Neurologic: Patient is alert, and oriented, cranial nerves, motor/sensory/ cerebellar, exams w/o gross deficits, to observation Psychiatric: Patient exhibits, appropriate attention, emotion and affect Cardiovascular (brief) Comments Irregularly Irregular with a rate of 135 - 150 bpm. Differential Diagnoses Considering: Medication Effect, Metabolic, UTI, Other (Metastatic CA) Progress Results/Orders Orders Procedure Category Date Status Time Cbc W/Auto LAB 04/06/17 Complete Diff-Reflex Manual Cmp - Comprehensive LAB 04/06/17 Complete Metabolic Troponin I W LAB 04/06/17 Complete Hemolysis Index EKG EKG 04/06/17 Logged Chest 1 View RAD 04/06/17 Taken 07:58 Normal Saline (Normal PHA 04/06/17 Complete Saline Iv) 08:00 Lactate - Lactic Acid LAB 04/06/17 Complete Blood Culture RICKY 04/06/17 In Process 08:00 Procalcitonin LAB 04/06/17 Complete 08:00 Lactate - Lactic Acid LAB 04/06/17 Logged 12:30 Diltiazem (Cardizem*) PHA 04/06/17 Complete Iv Bolus (Cardizem 08:45 Normal Saline (Ns) PHA 04/06/17 Complete 09:00 Normal Saline (Ns) PHA 04/06/17 Complete W/Diltiazem 09:00 Fentanyl (Fentanyl) PHA 04/06/17 Complete 09:00 Ondansetron Inj PHA 04/06/17 Complete (Zofran) 09:00 Metoprolol Tartrate PHA 04/06/17 Complete (Lopressor) 09:00 Fentanyl (Fentanyl) PHA 04/06/17 Complete 10:00 UA, LAB 04/06/17 In Process Dip&Micro(Complete) & 10:20 Lab Results Laboratory Tests Test 04/06/17 08:09 04/06/17 10:20 White Blood Count 28.9T/MM3 Red Blood Count 3.54M/MM3 Hemoglobin 10.1GM/DL Hematocrit 31.6% Mean Corpuscular Volume 89.3UM3 Mean Corpuscular Hemoglobin 28.5UUG Mean Corpuscular Hemoglobin Concent 32.0GM/DL RDW Standard Deviation 52.2FL Platelet Count 410T/MM3 Mean Platelet Volume 8.9UM3 Immature Granulocyte % (Auto) % Neutrophils (%) (Auto) % Lymphocytes (%) (Auto) % Monocytes (%) (Auto) % Eosinophils (%) (Auto) % Basophils (%) (Auto) % Absolute Immature Granulocyte (auto T/MM3 Absolute Neutrophils (auto) T/MM3 Absolute Lymphocytes (auto) T/MM3 Absolute Monocytes (auto) T/MM3 Absolute Eosinophils (auto) T/MM3 Absolute Basophils (auto) T/MM3 Neutrophils % (Manual) 77.0% Band Neutrophils % 6.0% Lymphocytes % (Manual) 13.0% Reactive Lymphocytes % 3.0% Monocytes % (Manual) 1.0% Absolute Neutrophils (Manual) 22.3T/MM3 Band Neutrophils # 1.7T/MM3 Lymphocytes # (Manual) 3.8T/MM3 Reactive Lymphocytes # 0.9T/MM3 Monocytes # (Manual) 0.3T/MM3 Hyposegmented Neutrophils 3+ Toxic Granulation 3+ Toxic Vacuolation 2+ Anisocytosis 1+ Red Cell Morphology Comment Abnormal Turbidity < 20 Sodium Level 143MEQ/L Potassium Level 3.7MEQ/L Chloride Level 105MEQ/L Carbon Dioxide Level 25MEQ/L Anion Gap 13MEQ/L Blood Urea Nitrogen 16.0MG/DL Creatinine 0.8MG/DL Glomerular Filtration Rate Calc 93 BUN/Creatinine Ratio 20RATIO Glucose Level 95MG/DL Calculated Osmolality 276MOSM/KG Calcium Level 7.4MG/DL Total Bilirubin 1.00MG/DL Icterus Index < 2 Aspartate Amino Transf (AST/SGOT) 65U/L Alanine Aminotransferase (ALT/SGPT) 31U/L Alkaline Phosphatase 396U/L Troponin I 0.294ng/ml Total Protein 6.4G/DL Albumin 3.4G/DL Globulin 3.0G/DL Albumin/Globulin Ratio 1.1RATIO Plasma Lactate 2.1MMOL/L Procalcitonin 0.06NG/ML Chemistry Specimen Hemolysis < 15 Urine Collection Type Cleancatch-midstream Urine Color Yellow Urine Turbidity Clear Urine pH 6.0 Urine Specific [place] 1.010 Urine Protein Negative Urine Glucose (UA) Negative Urine Ketones Negative Urine Blood 1+ Urine Nitrite Negative Urine Bilirubin Negative Urine Urobilinogen 0.2EU/DL Urine Leukocyte Esterase Negative Urine RBC Pending Urine WBC Pending Urine Bacteria Pending Medications Current ED Medications Sodium Chloride (Normal Saline IV) 1,000 ml @ 999 mls/hr Q1H1M ONCE IV ; Start 04/06/17 at 08:00; Stop 04/06/17 at 09:00; Status DC Diltiazem HCl 5 mg 5 mg O ONCE IV ; Start 04/06/17 at 08:45; Stop 04/06/17 at 08:58; Status DC Sodium Chloride 500 ml @ 999 mls/hr Q31M ONCE IV Last administered on 09:00; Start 04/06/17 at 09:00; Stop 04/06/17 at 09:30; Status DC Diltiazem HCl/ Sodium Chloride (Cardizem 125 Mg/ 25 ml Injection/ NS) 125 ml @ 5 mls/hr Q24H IV ; Start 04/06/17 at 09:00; Stop 04/06/17 at 09:00; Status DC Fentanyl (Fentanyl) 25 mcg O ONCE IV Last administered on 04/06/17 09:04; Start 04/06/17 at 09:00; Stop 04/06/17 at 09:01; Status DC Ondansetron HCl (Zofran) 4 mg O ONCE IV ; Start 04/06/17 at 09:00; Stop at 09:01; Status DC Metoprolol Tartrate (Lopressor) 25 mg O ONCE PO Last administered on 09:15; Start 04/06/17 at 09:00; Stop 04/06/17 at 09:01; Status DC Fentanyl (Fentanyl) 25 mcg O ONCE IV Last administered on 04/06/17 09:49; Start 04/06/17 at 10:00; Stop 04/06/17 at 10:01; Status DC Progress Progress Labs / imaging are discussed in detail with the patient and family and questions are answered. Patient and family request to have the patient placed on hospice at this time (914). Patient states that he is tired of dealing with the pain from the cancer and wishes to go on hospice. He is alert and oriented 4. Patient's durable power of privacy attorney his daughter is at bedside and is agreement with the current plan of management to place the patient on hospice care. Patient was given Lopressor 25 mg by mouth 1 in the emergency department with improvement of his heart rate down to the 120 bpm range. Patient was given analgesic pain medication in the emergency department as blood pressure would allow. Patient is discussed with Dr. Taylor and will be admitted to his service in improved condition for pain control. Patient is noted to have a leukocytosis which is most likely secondary to his anticancer medications. I have no source of infection for the patient. Patient was given 1.5 L normal saline intravenously in the emergency department. Accepting physician is in agreement with the current plan of management. Patient will be admitted for pain control with a do not resuscitate status. Hospice consult was performed in the emergency department. Patient and family are in agreement with the current plan of management. Patient is admitted to the hospital in improved condition. 42 minutes of critical care time was assessed to the patient due to the complex medical decision-making, repeated assessment at the bedside, and potential for decompensation. Patient also had an elevated troponin and heart rate greater than 160. Patient was given aspirin 162 mg by mouth 1 in the emergency department. EKG EKG : Rate: >100 Rhythm: atrial fibrillation [place]: normal QRS: RBBB Intervals: normal ST/T: normal Interpreted by: signing physician Xray Xray : Xray: CXR Portable Interpretation: Normal, Faxed Report MARY FLEMING DO April 06, 2017 08:12
[2017-04-06 08:22] LABS: HCT - HEMATOCRIT 31.6 % (41-53); HGB - HEMOGLOBIN 10.1 GM/DL (13.5-17.5); MEAN CORPUSCULAR HGB 28.5 UUG (26-34); MEAN CORPUSCULAR VOLUME 89.3 UM3 (80-100); MEAN PLATELET VOLUME 8.9 UM3 (9.4-12.4); RED BLOOD COUNT 3.54 M/MM3 (4.50-5.90)
--- NOTE | 2017-04-06 08:27 | NUR ---
ALEXEI CONTACTED [facility] AT PT AND FAMILY REQUEST. ADVISED THEY WILL HAVE A NURSE CALL BACK SHORTLY.
--- NOTE | 2017-04-06 08:31 | NUR ---
ORAL CARE FAMILY PROVIDED ORAL CARE SUPPLIES.
[2017-04-06 08:33] LABS: WBC - WHITE BLOOD COUNT 28.9 T/MM3 (4.5-11.0)
[2017-04-06 08:38] LABS: LACTATE - LACTIC ACID 2.1 MMOL/L (0.6-2.2)
--- NOTE | 2017-04-06 08:39 | NUR ---
PT PAIN STATUS/PROVIDER PT CONTINUES TO REPORT PAIN, BLOOD PRESSURE HAS INCREASED, HR IS STILL AFIB. PT AND PT'S FAMILY REQUEST IV PAIN MEDICATIONS AND DR. FLEMING NOTIFIED.
[2017-04-06 08:42] LABS: ALBUMIN 3.4 G/DL (3.5-5.0); ALBUMIN/GLOBULIN RATIO 1.1 RATIO (1.1-2.2); ALKALINE PHOSPHATASE 396 U/L (38-126); ALT (SGPT) 31 U/L (21-72); ANION GAP 13 MEQ/L (5-15); AST (SGOT) 65 U/L (17-59); BAND NEUTROPHILS # 1.7 T/MM3; BUN/CREATININE RATIO 20 RATIO (6-26); CALCIUM 7.4 MG/DL (8.4-10.2); CHLORIDE 105 MEQ/L (98-107); CO2 - CARBON DIOXIDE 25 MEQ/L (22-30); CREATININE 0.8 MG/DL (0.8-1.5); GLOMERULAR FILTRATION RATE 93; GLUCOSE 95 MG/DL (75-110); LYMPHOCYTES # (MANUAL) 3.8 T/MM3 (1-4.8); MONOCYTES # (MANUAL) 0.3 T/MM3 (0-0.8); NEUTROPHILS #(MANUAL)-ABSOLUTE 22.3 T/MM3 (1.8-7.7); POTASSIUM 3.7 MEQ/L (3.6-5); REACTIVE LYMPHOCYTES # 0.9 T/MM3 (0-0); SODIUM 143 MEQ/L (134-144); TOTAL CELLS COUNTED 100 %; TOTAL PROTEIN 6.4 G/DL (6.3-8.2)
[2017-04-06] MEDS ORDERED: DILTIAZEM 25mg/5ml INJECTION IV ONE (08:45)
[2017-04-06 08:46] LABS: TOXIC GRANULATION 3+; TOXIC VACUOLATION 2+
[2017-04-06 08:47] LABS: ANISOCYTOSIS 1+
[2017-04-06] MEDS ORDERED: NORMAL SALINE 500 ML IV ONE (09:00)
[2017-04-06] MEDS ORDERED: DILTIAZEM 125 MG in NORMAL SALINE 125 ML IV SCH (09:00)
[2017-04-06] MEDS ORDERED: FENTANYL 100mcg/2ml INJECTION IV ONE ×2 (09:00→10:00)
[2017-04-06] MEDS ORDERED: ONDANSETRON 4mg/2ml INJECTION IV ONE (09:00)
[2017-04-06] MEDS ORDERED: LACT1CAP80 PO (09:28)
[2017-04-06] MEDS ORDERED: DRON2.5C PO (09:29)
[2017-04-06] MEDS ORDERED: OXYC-426 PO (09:30)
[2017-04-06] MEDS ORDERED: CALC-768 PO (09:32)
[2017-04-06] MEDS ORDERED: ONDA-55 PO (09:35)
[2017-04-06] MEDS ORDERED: [UNRECOGNIZED DRUG - CODE] PO (09:36)
--- NOTE | 2017-04-06 09:37 | NUR ---
PT STATUS PT RESTING, EASILY WOKE AND STATES THE PAIN IS DECREASING, UNABLE TO RATE AT THIS TIME BUT IS ABLE TO REST. FAMILY REMAINS AT BEDSIDE, CALL LIGHT IN REACH.
--- NOTE | 2017-04-06 09:40 | NUR ---
HOSPICE/FAMILY HOSPICE NURSES ARE HERE AND MOVED TO SURGICAL QUIET ROOM.
--- NOTE | 2017-04-06 09:45 | NUR ---
PORT. CHEST RADIOLOGY IN ROOM WITH PT.
[2017-04-06 10:35] LABS: BLOOD, URINE 1+ (NEGATIVE); COLOR,URINE YELLOW (YELLOW); LEUKOCYTE ESTERASE ,URINE NEGATIVE (NEGATIVE); NITRITE,URINE NEGATIVE (NEGATIVE); UROBILINOGEN,URINE 0.2 EU/DL (NORMAL)
--- NOTE | 2017-04-06 10:44 | NUR ---
DNR REQUEST PT, HOSPICE, AND FAMILY REQUESTING TO SIGN DNR PAPERWORK. DR. FLEMING NOTIFIED, ARRANGEMENTS MADE FOR ADMISSION.
--- NOTE | 2017-04-06 10:52 | NUR ---
REPORT REPORT CALLED TO SIVLIA/DAYANA ON THE FLOOR.
--- OUTSIDE RECORDS SUMMARY | 2017-04-06 10:57 | XMS REPORT | Continuity of Care Document ---
Author Author [facility] Organization [facility] Address Unknown Phone Unavailable Allergies Active Description Code Type Severity Reaction Onset Reported/Identified Relationship to Patient Clinical Status Yes codeine NKMA N/A N/A 07/26/2015 Yes codeine NKMA N/A N/A 07/26/2015 Medications Medication Packaging Start Date Stop Date Route Dosage Sig HYDROcodone-acetaminophen([place] 7.5 mg-325 mg oral tablet) 04/27/2014 05/27/2014 [...] SubCutaneous 120 mg 120 mg, SubCutaneous, Once HYDROcodone-acetaminophen([place] 7.5 mg-325 mg oral tablet) 1 tabs [...] mg 1 tabs, Oral, Daily, 30 tabs HYDROcodone-acetaminophen([place] 5 mg-325 mg oral tablet) 1 tabs [...] mg 1 caps, Oral, Daily, 30 caps HYDROcodone-acetaminophen([place] 5 mg-325 mg oral tablet) 1 tabs 08/24/2014 10/11/2014 Oral 1 tabs, Oral, q4hr, PRN: as needed for pain HYDROcodone-acetaminophen([place] 7.5 mg-325 mg oral tablet) 1 tabs 01/27/2015 02/25/2015 Oral 1 tabs, Oral, q4hr, 70 tabs, PRN: as needed for pain aspirin(aspirin 325 mg oral tablet) tabs 05/12/20152014 Oral mg mg=tabs, Oral, Daily, sometimes will take instead of 81 mg, 0 Refill (s) HYDROcodone-acetaminophen([place] 7.5 mg-325 mg oral tablet) 1 tabs 05/12/2015 06/17/2015 Oral 1 tabs, Oral, TID, for 30 days, PRN: as needed for pain, 70 tabs, 0 Refill(s) Lactated Ringers Injection(Lactated Ringers Injection 1, 000 mL) 1,000 mL 201407/26/2015 IV 20 mL/hr, IV, Stop: 07/26/15 12:00:00 CDT HYDROcodone-acetaminophen([place] 7.5 mg-325 mg oral tablet) 1 tabs [...] mg=0.5 mL, IV Push, Once, PRN: Pain HYDROcodone-acetaminophen([place] 7.5 mg-325 mg oral tablet) 1 tabs [...] Procedures Code Description [place] [address] Cystourethroscopy, with fulguration (including cryosurgery or laser [...] Status Pt. Type Provider Facility Loc./Unit Complaint [id number] 02/12/2014 08:02:00 02/12/2014 23 :59:59 CLS Outpatient [id number] 01/15/2014 08:06:00 01/15/2014 23 :59:59 CLS Outpatient [id number] 12/24/2013 12:36:00 12/24/2013 23 :59:59 CLS Outpatient [id number] 12/16/2013 17:52:00 12/16/2013 23 :59:59 CLS Outpatient
[2017-04-06 10:59] LABS: SQUAMOUS EPITHELIAL CELL,UR 0-5
[2017-04-06 11:00] LABS: BACTERIA,URINE TRACE (NEGATIVE)
[2017-04-06 11:09] VITALS: Ht 162.6 cm; Wt 58.0 kg
[2017-04-06 11:10] VITALS: PULSE 120
--- NOTE | 2017-04-06 11:15 | NUR ---
Admit Patient admitted to medical unit room 162 from ED. Arrived on cart accompanied by staff and family. Patient total transfer from cart to bed. Reports pain 10/10 generalized all over body. BP low and physician is aware. Patient pleasant and cooperative with admit process.
[2017-04-06 11:19] VITALS: BP 80/63; PULSE 120; RESP 18; TEMP 95.3; O2SAT 99
[2017-04-06] MEDS: DRONABINOL 2.5 MG CAPSULE PO SCH ×2 (11:34→21:48)
[2017-04-06] MEDS ORDERED: LORAZEPAM 0.5 MG TABLET PO PRN (11:45)
--- NOTE | 2017-04-06 11:53 | HPPDOC ---
LILLIAN TALAMANTES APRN 04/06/17 1147: HPI - Adult Date DATE: 04/06/17 TIME: 11:37 General Chief Complaint: A-fib RVR, prostatic cancer, severe bone pain History of Present Illness Mr Dutton is a 21-year-old male who is brought to the emergency room today for evaluation of severe bone pain related to metastatic disease. He has a known history of metastatic prostate cancer and has been under the care of Dr. Carrillo. He had one round of chemotherapy this past Tuesday 04/03 and over the past 24 hours has had severe bone pain. Despite utilizing his long-acting oxycodone, [place] and Marinol . She presented to the emergency room for further evaluation and treatment. On arrival today. He was found to be in atrial fibrillation with RVR, which is new. He was given Lopressor 25 milligrams orally while in the emergency room and heart rate did decrease down into the 110 -120 range. Further evaluation including laboratory studies were obtained. The WBC count was found to be significantly elevated 28.9 however he received colony stimulating factor medication, which stimulates white blood cells. Hemoglobin 10.1, hematocrit 31.6, platelet count 410, neutrophils 77%. Sodium is 143, potassium 3.7, BUNs 16, crit and 0.8, alkaline phosphatase 396. Troponin is elevated at 0.294. Family did request [facility] and they presented to evaluate patient at time of admission. Past Medical History Past Medical History Prostate cancer with osseous metastatic disease. Kidney stones Chronic back pain Surgical History Patient's Surgical History: Lithotripsy. Cholecystectomy. Multiple lumbar back surgeries (last surgery >15 yrs ago) Current Medications Home Meds Active Scripts Promethazine HCl (Promethazine HCl) 25 Mg Tablet, 25 MG PO Q6H Y for NAUSEA, #20 Prov:LILLIAN TALAMANTES APRN 04/07/17 Dexamethasone (Dexamethasone) 4 Mg Tablet, 4 MG PO DAILY for 10 Days, #10 TAB Prov:LILLIAN TALAMANTES APRN 04/07/17 Morphine Sulfate (Morphine Sulfate Oral Solution) 100 Mg/5 Ml Solution, 20 MG SL Q1H Y for PAIN for 10 Days, ML Prov:LILLIAN TALAMANTES APRN 04/07/17 Morphine Sulfate (Morphine Sulfate Oral Solution) 100 Mg/5 Ml Solution, 20 MG SL Q2H for 10 Days, ML Prov:LILLIAN TALAMANTES V MANAGER [employer] 04/07/17 Lorazepam (Ativan) 0.5 Mg Tablet, 0.5 MG PO Q4H for 10 Days, #60 TAB Prov:LILLIAN TALAMANTES V [employer]NA[employer] 04/07/17 Lorazepam (Ativan) 0.5 Mg Tablet, 0.5 MG PO BID for 30 Days, #60 TAB Prov:LILLIAN TALAMANTES V [employer]NA[employer] 04/07/17 Reported Medications Loperamide HCl (Imodium A-D) 2 Mg Capsule, 2 MG PO PRN 04/06/17 Ondansetron HCl (Ondansetron HCl) 4 Mg Tablet, 4 MG PO Q4H Y for NAUSEA &/OR VOMITING 04/06/17 Oxycodone HCl (Oxycontin) 30 Mg Tab.er.12h, 30 MG PO BID 04/06/17 Dronabinol (Marinol) 2.5 Mg Capsule, 2.5 MG PO BID 04/06/17 Lactobacillus Combo No.10 (Probiotic) 1 Each Capsule, 1 CAP PO ACB 04/06/17 Tamsulosin HCl (Tamsulosin HCl) 0.4 Mg Cap.er.24h, 0.4 MG PO HS 10/17/16 Docusate Sodium (Docusate Sodium) 100 Mg Tablet, 200 MG PO DAILY 10/17/16 Loratadine (Claritin) 10 Mg Tablet, 10 MG PO DAILY 10/17/16 Omeprazole Magnesium (Prilosec Otc) 20 Mg Tablet.dr, 20 MG PO BID 10/17/16 Polyethylene Glycol 3350 (Miralax) 17 Gm Powd.pack, 17 G PO DAILY 10/17/16 Hydrocodone/Acetaminophen ([place] 10-325 Tablet) 10-325 Tablet, 1 TAB PO QID 10/17/16 Discontinued Reported Medications Calcium Carbonate/Vitamin D3 (Calcium 600 + Vit D Caplet) 1 Each Tablet, 1 CAP PO BID 04/06/17 Aspirin (Aspirin) 81 Mg Tab.chew, 81 MG PO DAILY 10/17/16 Prednisone (Prednisone) 5 Mg Tablet, 5 MG PO BID 10/17/16 Allergies: Coded Allergies: Iodinated Contrast Media - Oral and (Verified Allergy, Unknown, 04/06/17) Family History Family History: Mother-CVA Father-CVA Social History Smoking Status: Never smoker Does patient use chewing tobac: No Substance Use Type: does not use Marital Status: Sexuality: female partner Housing: house Current Occupational Status: retired Advance Directives: Yes DNR, Yes DPOA for Healthcare Only Social History Comments PCP Juany Love APRN with Dr. Cardenas Oncologist-Dr. Haines Review of Systems Unable to Obtain ROS Due to: clinical condition Comments Patient is in significant pain and unable to give a detailed ROS. Reports severe lower ext "bone" pain. Physical Exam General General Nourishment: well nourished, well developed, thin Vital Signs Vital Signs Date Time Temp Pulse Resp B/P Pulse Ox O2 Delivery O2 Flow Rate FiO2 04/06/17 11:19 95.3 120 18 80/63 99 Nasal Cannula 2.00 Height (Feet): 5 Height (Inches): 4.00 Eyes Brief: FOUND: EOMI Respiratory Brief: FOUND: clear all knott, equal bilaterally Cardiovascular (brief) Comments Tachycardia, atrial fibrillation, RVR- Heart 120 Abdomen (brief) Abdominal Brief: FOUND: BS normo active x4, soft Musculoskeletal (brief) Musculoskeletal Brief: FOUND: tenderness (Generalized, Lower ext pain) Integumentary (brief) Integumentary Brief: FOUND: dry, pink, warm Neurologic (brief) Neurological Brief: FOUND: cranial 2-12 intact Neurologic RN Documented GCS Eye Opening: Verbal: Motor: Total: Psychiatric (brief) FOUND: alert, attentive, normal affect, oriented Laboratory Laboratory Tests Test 04/06/17 08:09 04/06/17 10:20 White Blood Count 28.9T/MM3 Red Blood Count 3.54M/MM3 Hemoglobin 10.1GM/DL Hematocrit 31.6% Mean Corpuscular Volume 89.3UM3 Mean Corpuscular Hemoglobin 28.5UUG Mean Corpuscular Hemoglobin Concent 32.0GM/DL RDW Standard Deviation 52.2FL Platelet Count 410T/MM3 Mean Platelet Volume 8.9UM3 Immature Granulocyte % (Auto) % Neutrophils (%) (Auto) % Lymphocytes (%) (Auto) % Monocytes (%) (Auto) % Eosinophils (%) (Auto) % Basophils (%) (Auto) % Absolute Immature Granulocyte (auto T/MM3 Absolute Neutrophils (auto) T/MM3 Absolute Lymphocytes (auto) T/MM3 Absolute Monocytes (auto) T/MM3 Absolute Eosinophils (auto) T/MM3 Absolute Basophils (auto) T/MM3 Neutrophils % (Manual) 77.0% Band Neutrophils % 6.0% Lymphocytes % (Manual) 13.0% Reactive Lymphocytes % 3.0% Monocytes % (Manual) 1.0% Absolute Neutrophils (Manual) 22.3T/MM3 Band Neutrophils # 1.7T/MM3 Lymphocytes # (Manual) 3.8T/MM3 Reactive Lymphocytes # 0.9T/MM3 Monocytes # (Manual) 0.3T/MM3 Hyposegmented Neutrophils 3+ Toxic Granulation 3+ Toxic Vacuolation 2+ Anisocytosis 1+ Red Cell Morphology Comment Abnormal Turbidity < 20 Sodium Level 143MEQ/L Potassium Level 3.7MEQ/L Chloride Level 105MEQ/L Carbon Dioxide Level 25MEQ/L Anion Gap 13MEQ/L Blood Urea Nitrogen 16.0MG/DL Creatinine 0.8MG/DL Glomerular Filtration Rate Calc 93 BUN/Creatinine Ratio 20RATIO Glucose Level 95MG/DL Calculated Osmolality 276MOSM/KG Calcium Level 7.4MG/DL Total Bilirubin 1.00MG/DL Icterus Index < 2 Aspartate Amino Transf (AST/SGOT) 65U/L Alanine Aminotransferase (ALT/SGPT) 31U/L Alkaline Phosphatase 396U/L Troponin I 0.294ng/ml Total Protein 6.4G/DL Albumin 3.4G/DL Globulin 3.0G/DL Albumin/Globulin Ratio 1.1RATIO Plasma Lactate 2.1MMOL/L Procalcitonin 0.06NG/ML Chemistry Specimen Hemolysis < 15 Urine Collection Type Cleancatch-midstream Urine Color Yellow Urine Turbidity Clear Urine pH 6.0 Urine Specific [place] 1.010 Urine Protein Negative Urine Glucose (UA) Negative Urine Ketones Negative Urine Blood 1+ Urine Nitrite Negative Urine Bilirubin Negative Urine Urobilinogen 0.2EU/DL Urine Leukocyte Esterase Negative Urine RBC 5-10/HPF Urine WBC 1-3/HPF Urine Squamous Epithelial Cells 0-5 Urine Bacteria Trace Urine Culture Indicated Cult not indicated Assessment & Plan Problems: (1) Atrial fibrillation Status: Acute Qualifiers: Atrial fibrillation type: unspecified Qualified Codes: I48.91 - Unspecified atrial fibrillation Assessment & Plan: New onset (2) Leukocytosis Status: Acute (3) Elevated troponin Status: Acute (4) Prostate cancer Status: Chronic (5) Bone metastases Status: Chronic (6) Macrocytic anemia (7) Chronic narcotic use Status: Chronic Plan/Intensity of Service Admit patient to outpatient observation under the care of Dr. Taylor for new onset atrial fibrillation with RVR, metastatic bone pain Resume patient's home medications including oxycodone 30 milligrams twice a day , Marinol 2.5 milligrams twice a day, [place] 10 one to 2 tabs as needed for breakthrough pain. Spoke with hospice nurse with [facility] at bedside. She recommends initiating Roxanol 20 milligrams every 2 hours scheduled, +20 milligrams as needed hourly when necessary. She also recommends Ativan 0.5 milligrams scheduled twice a day as well as 0.5 milligrams every 4 hours as needed. Family verbalizes their concern and importance of adequate pain control. Given the patient has missed all of his long-acting medications this morning. We will continue with normal saline at 100 ML per hour for gentle hydration Plan will be to keep patient comfortable and developed discharge plans with [facility]. Do not resuscitate order is signed by family at time of admission. Further discussion, plan will be discussed with attending, Dr. Taylor Code Status Do Not Resuscitate Hospital Course Summary Disclaimer The hospital course summary below is not to be considered part of the above Progress Note. Hospital Course Summary Admit patient to outpatient observation under the care of Dr. Taylor for new onset atrial fibrillation with RVR, metastatic bone pain Resume patient's home medications including oxycodone 30 milligrams twice a day , Marinol 2.5 milligrams twice a day, [place] 10 one to 2 tabs as needed for breakthrough pain. Spoke with hospice nurse with [facility] at bedside. She recommends initiating Roxanol 20 milligrams every 2 hours scheduled, +20 milligrams as needed hourly when necessary. She also recommends Ativan 0.5 milligrams scheduled twice a day as well as 0.5 milligrams every 4 hours as needed. Family verbalizes their concern and importance of adequate pain control. Given the patient has missed all of his long-acting medications this morning. We will continue with normal saline at 100 ML per hour for gentle hydration Plan will be to keep patient comfortable and developed discharge plans with [facility]. Do not resuscitate order is signed by family at time of admission. Further discussion, plan will be discussed with attending, Dr. KRYSTAL Villagran MD 04/08/17 0858: Past Medical History Current Medications Home Meds Active Scripts Promethazine HCl (Promethazine HCl) 25 Mg Tablet, 25 MG PO Q6H Y for NAUSEA, #20 Prov:LILLIAN TALAMANTES APRN 04/07/17 Dexamethasone (Dexamethasone) 4 Mg Tablet, 4 MG PO DAILY for 10 Days, #10 TAB Prov:LILLIAN TALAMANTES APRN 04/07/17 Morphine Sulfate (Morphine Sulfate Oral Solution) 100 Mg/5 Ml Solution, 20 MG SL Q1H Y for PAIN for 10 Days, ML Prov:LILLIAN TALAMANTES APRN 04/07/17 Morphine Sulfate (Morphine Sulfate Oral Solution) 100 Mg/5 Ml Solution, 20 MG SL Q2H for 10 Days, ML Prov:LILLIAN TALAMANTES APRN 04/07/17 Lorazepam (Ativan) 0.5 Mg Tablet, 0.5 MG PO Q4H for 10 Days, #60 TAB Prov:LILLIAN TALAMANTES APRN 04/07/17 Lorazepam (Ativan) 0.5 Mg Tablet, 0.5 MG PO BID for 30 Days, #60 TAB Prov:LILLIAN TALAMANTES APRN 04/07/17 Reported Medications Loperamide HCl (Imodium A-D) 2 Mg Capsule, 2 MG PO PRN 04/06/17 Ondansetron HCl (Ondansetron HCl) 4 Mg Tablet, 4 MG PO Q4H Y for NAUSEA &/OR VOMITING 04/06/17 Oxycodone HCl (Oxycontin) 30 Mg Tab.er.12h, 30 MG PO BID 04/06/17 Dronabinol (Marinol) 2.5 Mg Capsule, 2.5 MG PO BID 04/06/17 Lactobacillus Combo No.10 (Probiotic) 1 Each Capsule, 1 CAP PO ACB 04/06/17 Tamsulosin HCl (Tamsulosin HCl) 0.4 Mg Cap.er.24h, 0.4 MG PO HS 10/17/16 Docusate Sodium (Docusate Sodium) 100 Mg Tablet, 200 MG PO DAILY 10/17/16 Loratadine (Claritin) 10 Mg Tablet, 10 MG PO DAILY 10/17/16 Omeprazole Magnesium (Prilosec Otc) 20 Mg Tablet.dr, 20 MG PO BID 10/17/16 Polyethylene Glycol 3350 (Miralax) 17 Gm Powd.pack, 17 G PO DAILY 10/17/16 Hydrocodone/Acetaminophen ([place] 10-325 Tablet) 10-325 Tablet, 1 TAB PO QID 10/17/16 Discontinued Reported Medications Calcium Carbonate/Vitamin D3 (Calcium 600 + Vit D Caplet) 1 Each Tablet, 1 CAP PO BID 04/06/17 Aspirin (Aspirin) 81 Mg Tab.chew, 81 MG PO DAILY 10/17/16 Prednisone (Prednisone) 5 Mg Tablet, 5 MG PO BID 10/17/16 Allergies: Coded Allergies: Iodinated Contrast Media - Oral and (Verified Allergy, Unknown, 04/06/17) Assessment & Plan Assessment Seen and examined same day as nurse practitioner Lillian Talamantes. Agree with her histories, review systems physical exam assessment and plan. Mr. Dutton intends to transition to hospice care but needs pain control, which for some to matter purposes probably should include his cardiac rate control. LILLIAN TALAMANTES APRN April 06, 2017 11:47 KRYSTAL TAYLOR MD April 08, 2017 08:58
[2017-04-06] MEDS: OXYCODONE 15 MG PO SCH ×2 (12:10→21:55)
[2017-04-06] MEDS: 1/2 NS 1,000 ML IV SCH ×2 (12:11→22:00)
[2017-04-06] MEDS: MORPHINE SULFATE SL SCH ×7 (13:00→23:45)
[2017-04-06] MEDS: MORPHINE SULFATE SL PRN (14:30)
[2017-04-06] MEDS: ONDANSETRON 4mg/2ml INJECTION IV PRN ×2 (14:35→20:40)
[2017-04-06 14:43] VITALS: BP 90/60; PULSE 116; RESP 18; TEMP 97.9; O2SAT 97
[2017-04-06] MEDS ORDERED: METOCLOPRAMIDE 10mg/2ml INJECTION IV PRN (14:45)
--- NOTE | 2017-04-06 19:26 | NUR ---
Status Patient resting quietly in bed. States pain is more tolerable and rating around 5/10. Small sips of water taken along with a few bites of jello. Numerous family members present and very attentive to patient. Continues on 2 L O2 which is what patient wears at home. Bed alarm on. Call light within reach.
[2017-04-06] MEDS: LORAZEPAM 0.5 MG TABLET PO SCH (21:47)
[2017-04-06 22:05] VITALS: BP 112/74; PULSE 155; RESP 17; TEMP 100; O2SAT 97
[2017-04-07] MEDS: MORPHINE SULFATE SL SCH ×7 (01:45→12:45)
[2017-04-07] MEDS: ONDANSETRON 4mg/2ml INJECTION IV PRN ×2 (03:17→09:09)
[2017-04-07 07:35] VITALS: BP 106/67; PULSE 180; RESP 22; TEMP 97.5; O2SAT 97
--- NOTE | 2017-04-07 07:37 | NUR ---
shift summary pt is a/o x2-3 but has not been out of bed for shift duration. pt is on 2L NC which is what pt wears at home. pt given scheduled pain meds and seems to be somewhat comfortable at this time. Early this AM pt became clammy between 1-3am. pt clothing and bedding ashley and pillow case changed. currently pt not clammy. pt has been afebrile when checked at 2200. pt has had adequate urine output of 300ml for shift. pt might go home today on hospice.
[2017-04-07 08:00] VITALS: PULSE 160
[2017-04-07] MEDS ORDERED: METOPROLOL 5mg/5ml INJECTION IV PRN (08:45)
[2017-04-07] MEDS: LORAZEPAM 0.5 MG TABLET PO SCH ×2 (09:00→09:12)
[2017-04-07] MEDS: OXYCODONE 15 MG PO SCH ×2 (09:00→09:07)
[2017-04-07] MEDS: ASPIRIN 81 MG CHEWABLE TABLET PO SCH ×2 (09:00→09:07)
[2017-04-07] MEDS: 1/2 NS 1,000 ML IV SCH (09:06)
[2017-04-07] MEDS: DRONABINOL 2.5 MG CAPSULE PO SCH (09:08)
[2017-04-07] MEDS ORDERED: DEXAMETHASONE 10 MG in NORMAL SALINE 50 ML IV ONE (09:15)
[2017-04-07] MEDS ORDERED: PROMETHAZINE 25 MG INJECTION IV PRN (09:15)
[2017-04-07] MEDS ORDERED: DEXAMETHASONE 4mg/ml - 1ml INJECTION IV ONE (09:15)
[2017-04-07] MEDS ORDERED: PROMETHAZINE 50 MG INJECTION IM ONE (10:00)
[2017-04-07] MEDS ORDERED: MORP100S3 SL ×2 (10:09)
[2017-04-07] MEDS ORDERED: LORA0.5T86 PO ×2 (10:09)
[2017-04-07] MEDS ORDERED: PROM25TA7 PO (10:09)
[2017-04-07] MEDS ORDERED: DEXA4TAB PO (10:09)
--- NOTE | 2017-04-07 10:36 | PNPDOC ---
ELBA TALAMANTES V GRADE FOREMAN 04/07/17 1036: Subjective Date DATE: 04/07/17 TIME: 10:31 Subjective Mr Dutton is seen this morning. He continues to have significant difficulty with nausea this morning. His heart rate has remained high overnight as high as 180 following episodes of vomiting. Overall, his pain has been better controlled and is currently at a 3 out of 10. Discussed with family at the bedside regarding plan of care and possible discharge later today with hospice. Objective Vital Signs Vital signs Vital Signs Date Time Temp Pulse Resp B/P Pulse Ox O2 Delivery O2 Flow Rate FiO2 04/07/17 07:35 97.5 180 22 106/67 97 Nasal Cannula 2.00 Height (Feet): 5 Height (Inches): 4.00 Weight (Kilograms): 58.000 General General Appearance: Alert, Orientated x 1, Cooperative, No Acute Distress Eyes (Brief) Eyes: FOUND: EOMI ENMT (Brief) ENMT: FOUND: mucosa moist, normal dentition, NOT FOUND: pharnyx erythema Neck (Brief) Neck: FOUND: midline, NOT FOUND: adenopathy, carotid bruits, tracheal deviation Respiratory (Brief) Respiratory: FOUND: clear all knott, equal bilaterally, NOT FOUND: wheezes Cardiovascular (Brief) Cardiac: FOUND: regular rate, regular rhythm, NOT FOUND: murmur, pedal edema Capillary Refill: <2 sec Abdomen (Brief) Abdominal: FOUND: BS normo active x4, soft, NOT FOUND: distended, tender Lymphatic (Brief) Lymphatic: NOT FOUND: adenopathy Musculoskeletal (Brief) Musculoskeletal: NOT FOUND: tenderness Integumentary (Brief) Integumentary: FOUND: dry, pink, warm Neurologic (Brief) Neurological: FOUND: cranial 2-12 intact Psychiatric (Brief) Psychiatric: FOUND: alert, attentive, normal affect, oriented Laboratory Laboratory Laboratory Tests 04/06/17 08:09 Laboratory Tests 04/06/17 08:09 Microbiology Microbiology Microbiology Date/Time Source Procedure Growth Status 04/06/17 08:15 Peripheral/Iv Start Blood Culture - Preliminary NO GROWTH AFTER 24 HOURS Resulted 04/06/17 08:09 Peripheral/Iv Start Blood Culture - Preliminary NO GROWTH AFTER 24 HOURS Resulted Assessment & Plan Problems: (1) Atrial fibrillation Status: Acute Qualifiers: Atrial fibrillation type: unspecified Qualified Codes: I48.91 - Unspecified atrial fibrillation Assessment & Plan: New onset (2) Leukocytosis Status: Acute (3) Elevated troponin Status: Acute (4) Prostate cancer Status: Chronic (5) Bone metastases Status: Chronic (6) Macrocytic anemia (7) Chronic narcotic use Status: Chronic Plan/Intensity of Service 04/07/17 Additional anti-emetics ordered. Will give a one-time dose of Phenergan 50 milligrams IM to get nausea under better control. title vehicle service attendant oncologist did speak with Dr. Taylor and recommended IV Decadron. This was ordered We'll continue with aggressive pain management to keep patient comfortable. Did give a one-time dose of IV Lopressor to help with tachycardia. Spoke with patient and multiple family members at the bedside. They verbalize wanting to take patient home on hospice. We will get nausea better controlled and hopefully transfer home later today Spoke with [facility] hospice nurse regarding plan of care. Code Status Do Not Resuscitate Hospital Course Summary Disclaimer The hospital course summary below is not to be considered part of the above Progress Note. Hospital Course Summary Admit patient to outpatient observation under the care of Dr. Taylor for new onset atrial fibrillation with RVR, metastatic bone pain Resume patient's home medications including oxycodone 30 milligrams twice a day , Marinol 2.5 milligrams twice a day, [place] 10 one to 2 tabs as needed for breakthrough pain. Spoke with hospice nurse with [facility] at bedside. She recommends initiating Roxanol 20 milligrams every 2 hours scheduled, +20 milligrams as needed hourly when necessary. She also recommends Ativan 0.5 milligrams scheduled twice a day as well as 0.5 milligrams every 4 hours as needed. Family verbalizes their concern and importance of adequate pain control. Given the patient has missed all of his long-acting medications this morning. We will continue with normal saline at 100 ML per hour for gentle hydration Plan will be to keep patient comfortable and developed discharge plans with [facility] hospice. Do not resuscitate order is signed by family at time of admission. Further discussion, plan will be discussed with attending, Dr. Taylor 04/07/17 Additional anti-emetics ordered. Will give a one-time dose of Phenergan 50 milligrams IM to get nausea under better control. title vehicle service attendant oncologist did speak with Dr. Taylor and recommended IV Decadron. This was ordered We'll continue with aggressive pain management to keep patient comfortable. Did give a one-time dose of IV Lopressor to help with tachycardia. Spoke with patient and multiple family members at the bedside. They verbalize wanting to take patient home on hospice. We will get nausea better controlled and hopefully transfer home later today Spoke with [facility] nurse regarding plan of care. KRYSTAL TAYLOR MD 04/08/17 0841: Assessment & Plan Assessment Seen and examined patient same day as practitioner Elba Talamantes. Agree with assessment plan and physical exam ELBA TALAMANTES APRN April 07, 2017 10:36 KRYSTAL TAYLOR MD April 08, 2017 08:41
--- NOTE | 2017-04-07 11:40 | DI ---
Indication: ITS.REASON: afib PROCEDURE: CHEST 1 VIEW: Encounter: Initial Comparison: October 22, 2016 Findings: Scattered bilateral pulmonary fibrotic changes. No obvious acute pneumonia. No pleural effusion or pneumothorax. Heart size and mediastinal contours are stable. Diffuse sclerotic osseous metastases. Impression: Stable appearance of the chest without focal pneumonia or overt congestive failure. There is a preliminary report by [facility]. .
[2017-04-07] MEDS: MORPHINE SULFATE SL PRN (14:20)
--- NOTE | 2017-04-07 14:40 | DSPDOC ---
ELBA TALAMATNES V BUFFET MANAGER 04/07/17 1440: General Date Date DATE: 04/07/17 TIME: 14:37 Attending Physician Krystal Taylor MD Admitting Physician Krystal Taylor MD Consulting Physician Admitting Diagnosis NEW Onset AFIB with RVR Discharge Diagnosis New onset A-fib wtih RVR Metastatic pain Procedures None Laboratory Laboratory Tests Test 04/06/17 08:09 04/06/17 10:20 White Blood Count 28.9T/MM3 (4.5-11.0) Red Blood Count 3.54M/MM3 (4.50-5.90) Hemoglobin 10.1GM/DL (13.5-17.5) Hematocrit 31.6% (41-53) Mean Corpuscular Volume 89.3UM3 (80-100) Mean Corpuscular Hemoglobin 28.5UUG (26-34) Mean Corpuscular Hemoglobin Concent 32.0GM/DL (31-37) RDW Standard Deviation 52.2FL (36.9-50.2) Platelet Count 410T/MM3 (130-400) Mean Platelet Volume 8.9UM3 (9.4-12.4) Immature Granulocyte % (Auto) % (0.0-0.5) Neutrophils (%) (Auto) % (33-66) Lymphocytes (%) (Auto) % (23-45) Monocytes (%) (Auto) % (0-9.0) Eosinophils (%) (Auto) % (0-4) Basophils (%) (Auto) % (0-2) Absolute Immature Granulocyte (auto T/MM3 (0.00-0.03) Absolute Neutrophils (auto) T/MM3 (1.8-7.7) Absolute Lymphocytes (auto) T/MM3 (1-4.8) Absolute Monocytes (auto) T/MM3 (0-0.8) Absolute Eosinophils (auto) T/MM3 (0-0.5) Absolute Basophils (auto) T/MM3 (0-0.2) Neutrophils % (Manual) 77.0% (33-66) Band Neutrophils % 6.0% (0-6) Lymphocytes % (Manual) 13.0% (23-45) Reactive Lymphocytes % 3.0% (0-0) Monocytes % (Manual) 1.0% (0-9.0) Absolute Neutrophils (Manual) 22.3T/MM3 (1.8-7.7) Band Neutrophils # 1.7T/MM3 Lymphocytes # (Manual) 3.8T/MM3 (1-4.8) Reactive Lymphocytes # 0.9T/MM3 (0-0) Monocytes # (Manual) 0.3T/MM3 (0-0.8) Hyposegmented Neutrophils 3+ Toxic Granulation 3+ Toxic Vacuolation 2+ Anisocytosis 1+ Red Cell Morphology Comment Abnormal Turbidity < 20 (0-20) Sodium Level 143MEQ/L (134-144) Potassium Level 3.7MEQ/L (3.6-5) Chloride Level 105MEQ/L (98-107) Carbon Dioxide Level 25MEQ/L (22-30) Anion Gap 13MEQ/L (5-15) Blood Urea Nitrogen 16.0MG/DL (9-20) Creatinine 0.8MG/DL (0.8-1.5) Glomerular Filtration Rate Calc 93 BUN/Creatinine Ratio 20RATIO (6-26) Glucose Level 95MG/DL (75-110) Calculated Osmolality 276MOSM/KG (261-280) Calcium Level 7.4MG/DL (8.4-10.2) Total Bilirubin 1.00MG/DL (0.20-1.30) Icterus Index < 2 (0-7) Aspartate Amino Transf (AST/SGOT) 65U/L (17-59) Alanine Aminotransferase (ALT/SGPT) 31U/L (21-72) Alkaline Phosphatase 396U/L (38-126) Troponin I 0.294ng/ml (0-0.12) Total Protein 6.4G/DL (6.3-8.2) Albumin 3.4G/DL (3.5-5.0) Globulin 3.0G/DL (2.4-3.6) Albumin/Globulin Ratio 1.1RATIO (1.1-2.2) Plasma Lactate 2.1MMOL/L (0.6-2.2) Procalcitonin 0.06NG/ML Chemistry Specimen Hemolysis < 15 (0-25) Urine Collection Type Cleancatch-midstream Urine Color Yellow (YELLOW) Urine Turbidity Clear (CLEAR) Urine pH 6.0 (5.0-8.0) Urine Specific [place] 1.010 (1.015-1.025) Urine Protein Negative (NEGATIVE) Urine Glucose (UA) Negative (NEGATIVE) Urine Ketones Negative (NEGATIVE) Urine Blood 1+ (NEGATIVE) Urine Nitrite Negative (NEGATIVE) Urine Bilirubin Negative (NEGATIVE) Urine Urobilinogen 0.2EU/DL (NORMAL) Urine Leukocyte Esterase Negative (NEGATIVE) Urine RBC 5-10/HPF (0-3) Urine WBC 1-3/HPF (0-5) Urine Squamous Epithelial Cells 0-5 Urine Bacteria Trace (NEGATIVE) Urine Culture Indicated Cult not indicated Microbiology Microbiology Date/Time Source Procedure Growth Status 04/06/17 08:15 Peripheral/Iv Start Blood Culture - Preliminary NO GROWTH AFTER 24 HOURS Resulted 04/06/17 08:09 Peripheral/Iv Start Blood Culture - Preliminary NO GROWTH AFTER 24 HOURS Resulted Radiology 04/06/17-chest x-ray- no acute cardiopulmonary findings History of Present Illness Mr Dutton is a 21-year-old male who is brought to the emergency room today for evaluation of severe bone pain related to metastatic disease. He has a known history of metastatic prostate cancer and has been under the care of Dr. Carrillo. He had one round of chemotherapy this past Tuesday 04/03 and over the past 24 hours has had severe bone pain. Despite utilizing his long-acting oxycodone, [place] and Marinol . She presented to the emergency room for further evaluation and treatment. On arrival today. He was found to be in atrial fibrillation with RVR, which is new. He was given Lopressor 25 milligrams orally while in the emergency room and heart rate did decrease down into the 110 -120 range. Further evaluation including laboratory studies were obtained. The WBC count was found to be significantly elevated 28.9 however he received colony stimulating factor medication, which stimulates white blood cells. Hemoglobin 10.1, hematocrit 31.6, platelet count 410, neutrophils 77%. Sodium is 143, potassium 3.7, BUNs 16, crit and 0.8, alkaline phosphatase 396. Troponin is elevated at 0.294. Family did request [facility] and they presented to evaluate patient at time of admission. Hospital Course Admit patient to outpatient observation under the care of Dr. Taylor for new onset atrial fibrillation with RVR, metastatic bone pain Resume patient's home medications including oxycodone 30 milligrams twice a day , Marinol 2.5 milligrams twice a day, [place] 10 one to 2 tabs as needed for breakthrough pain. Spoke with hospice nurse with pam hayserd at bedside. She recommends initiating Roxanol 20 milligrams every 2 hours scheduled, +20 milligrams as needed hourly when necessary. She also recommends Ativan 0.5 milligrams scheduled twice a day as well as 0.5 milligrams every 4 hours as needed. Family verbalizes their concern and importance of adequate pain control. Given the patient has missed all of his long-acting medications this morning. We will continue with normal saline at 100 ML per hour for gentle hydration Plan will be to keep patient comfortable and developed discharge plans with [facility]. Do not resuscitate order is signed by family at time of admission. Further discussion, plan will be discussed with attending, Dr. Taylor 04/07/17 Additional anti-emetics ordered. Will give a one-time dose of Phenergan 50 milligrams IM to get nausea under better control. call center nurse oncologist did speak with Dr. Taylor and recommended IV Decadron. This was ordered We'll continue with aggressive pain management to keep patient comfortable. Did give a one-time dose of IV Lopressor to help with tachycardia. Spoke with patient and multiple family members at the bedside. They verbalize wanting to take patient home on hospice. We will get nausea better controlled and hopefully transfer home later today Spoke with [facility] hospice nurse regarding plan of care. 1400- Nausea has improved and pain is tolerable. She and family verbalize wishes for discharge home with hospice. Hospice nurse contacted. She will be transported to private residence via EMS. He will continue with oxycodone, [place] , Marinol. Will also use Roxanol scheduled and when necessary as well as Ativan scheduled and when necessary. Phenergan and Decadron RX written. These orders will be under the care of [facility]. This is a general summation of the patients hospital course. Please refer to the medical record if additional detail is needed. Problems: (1) Atrial fibrillation Status: Acute Assessment & Plan: New onset (2) Leukocytosis Status: Acute (3) Elevated troponin Status: Acute (4) Prostate cancer Status: Chronic (5) Bone metastases Status: Chronic (6) Macrocytic anemia (7) Chronic narcotic use Status: Chronic Code Status Do Not Resuscitate Home Meds Active Scripts Promethazine HCl (Promethazine HCl) 25 Mg Tablet, 25 MG PO Q6H Y for NAUSEA, #20 Prov:ELBA TALAMANTES V SANTOSH 04/07/17 Dexamethasone (Dexamethasone) 4 Mg Tablet, 4 MG PO DAILY for 10 Days, #10 TAB Prov:ELBA TALAMANTES V SANTOSH 04/07/17 Morphine Sulfate (Morphine Sulfate Oral Solution) 100 Mg/5 Ml Solution, 20 MG SL Q1H Y for PAIN for 10 Days, ML Prov:ELBA TALAMANTES V SANTOSH 04/07/17 Morphine Sulfate (Morphine Sulfate Oral Solution) 100 Mg/5 Ml Solution, 20 MG SL Q2H for 10 Days, ML Prov:ALBINELBA Carrillo SANTOSH 04/07/17 Lorazepam (Ativan) 0.5 Mg Tablet, 0.5 MG PO Q4H for 10 Days, #60 TAB Prov:ELBA TALAMANTES V SANTOSH 04/07/17 Lorazepam (Ativan) 0.5 Mg Tablet, 0.5 MG PO BID for 30 Days, #60 TAB Prov:ELBA TALAMANTES V SANTOSH 04/07/17 Reported Medications Loperamide HCl (Imodium A-D) 2 Mg Capsule, 2 MG PO PRN 04/06/17 Ondansetron HCl (Ondansetron HCl) 4 Mg Tablet, 4 MG PO Q4H Y for NAUSEA &/OR VOMITING 04/06/17 Oxycodone HCl (Oxycontin) 30 Mg Tab.er.12h, 30 MG PO BID 04/06/17 Dronabinol (Marinol) 2.5 Mg Capsule, 2.5 MG PO BID 04/06/17 Lactobacillus Combo No.10 (Probiotic) 1 Each Capsule, 1 CAP PO ACB 04/06/17 Tamsulosin HCl (Tamsulosin HCl) 0.4 Mg Cap.er.24h, 0.4 MG PO HS 10/17/16 Docusate Sodium (Docusate Sodium) 100 Mg Tablet, 200 MG PO DAILY 10/17/16 Loratadine (Claritin) 10 Mg Tablet, 10 MG PO DAILY 10/17/16 Omeprazole Magnesium (Prilosec Otc) 20 Mg Tablet.dr, 20 MG PO BID 10/17/16 Polyethylene Glycol 3350 (Miralax) 17 Gm Powd.pack, 17 G PO DAILY 10/17/16 Hydrocodone/Acetaminophen ([place] 10-325 Tablet) 10-325 Tablet, 1 TAB PO QID 10/17/16 Discontinued Reported Medications Calcium Carbonate/Vitamin D3 (Calcium 600 + Vit D Caplet) 1 Each Tablet, 1 CAP PO BID 04/06/17 Aspirin (Aspirin) 81 Mg Tab.chew, 81 MG PO DAILY 10/17/16 Prednisone (Prednisone) 5 Mg Tablet, 5 MG PO BID 10/17/16 Face to Face Encounter I met with patient on the day of dismissal and discussed follow up appointments , medications, and safety plan. Discharge Disposition stable Copies To 1: VILMA LEONG MD,KRYSTAL Ruiz MD 04/08/17 0846: Hospital Course Home Meds Active Scripts Promethazine HCl (Promethazine HCl) 25 Mg Tablet, 25 MG PO Q6H Y for NAUSEA, #20 Prov:ELBA TALAMANTES APRN 04/07/17 Dexamethasone (Dexamethasone) 4 Mg Tablet, 4 MG PO DAILY for 10 Days, #10 TAB Prov:ELBA TALAMANTES APRN 04/07/17 Morphine Sulfate (Morphine Sulfate Oral Solution) 100 Mg/5 Ml Solution, 20 MG SL Q1H Y for PAIN for 10 Days, ML Prov:ELBA TALAMANTES APRN 04/07/17 Morphine Sulfate (Morphine Sulfate Oral Solution) 100 Mg/5 Ml Solution, 20 MG SL Q2H for 10 Days, ML Prov:ELBA TALAMANTES APRN 04/07/17 Lorazepam (Ativan) 0.5 Mg Tablet, 0.5 MG PO Q4H for 10 Days, #60 TAB Prov:ELBA TALAMANTES APRN 04/07/17 Lorazepam (Ativan) 0.5 Mg Tablet, 0.5 MG PO BID for 30 Days, #60 TAB Prov:ELBA TALAMANTES APRN 04/07/17 Reported Medications Loperamide HCl (Imodium A-D) 2 Mg Capsule, 2 MG PO PRN 04/06/17 Ondansetron HCl (Ondansetron HCl) 4 Mg Tablet, 4 MG PO Q4H Y for NAUSEA &/OR VOMITING 04/06/17 Oxycodone HCl (Oxycontin) 30 Mg Tab.er.12h, 30 MG PO BID 04/06/17 Dronabinol (Marinol) 2.5 Mg Capsule, 2.5 MG PO BID 04/06/17 Lactobacillus Combo No.10 (Probiotic) 1 Each Capsule, 1 CAP PO ACB 04/06/17 Tamsulosin HCl (Tamsulosin HCl) 0.4 Mg Cap.er.24h, 0.4 MG PO HS 10/17/16 Docusate Sodium (Docusate Sodium) 100 Mg Tablet, 200 MG PO DAILY 10/17/16 Loratadine (Claritin) 10 Mg Tablet, 10 MG PO DAILY 10/17/16 Omeprazole Magnesium (Prilosec Otc) 20 Mg Tablet.dr, 20 MG PO BID 10/17/16 Polyethylene Glycol 3350 (Miralax) 17 Gm Powd.pack, 17 G PO DAILY 10/17/16 Hydrocodone/Acetaminophen ([place] 10-325 Tablet) 10-325 Tablet, 1 TAB PO QID 10/17/16 Discontinued Reported Medications Calcium Carbonate/Vitamin D3 (Calcium 600 + Vit D Caplet) 1 Each Tablet, 1 CAP PO BID 04/06/17 Aspirin (Aspirin) 81 Mg Tab.chew, 81 MG PO DAILY 10/17/16 Prednisone (Prednisone) 5 Mg Tablet, 5 MG PO BID 10/17/16 Discharge Disposition Seen and examined with nurse practitioner Elba Talamantes. Agree with history of presenting illness hospital course discharge plan and physical exam. Copies To 1: VILMA LEONG MD, JULIE V APRN April 07, 2017 14:40 KRYSTAL TAYLOR MD April 08, 2017 08:46
--- NOTE | 2017-04-07 15:38 | NUR ---
DISCHARGE PT LEFT FROM ROOM 162 TO HOME WITH HOSPICE BY EMS AT 1515. DISCHARGE PACKET REVIEWED WITH PATIENT AND HIS DAUGHTER. DAUGHTER VERBALIZED UNDERSTANDING. HOSPICE NURSE TO MEET PATIENT AT HIS HOME.
[2017-04-08] MEDS ORDERED: DEXAMETHASONE 4 MG TABLET PO SCH (09:00)
== END 2017-04-07 15:15 | disposition hospice, home (50) ==
LOC: ED 07:38 → EDHOLD 10:45 → MED 10:45
PROVIDERS: ADMIT Family Medicine; ATTEND Family Medicine
DX: I48.91 Unspecified atrial fibrillation (principal); G89.3 Neoplasm related pain (acute) (chronic); C79.51 Secondary malignant neoplasm of bone; C61 Malignant neoplasm of prostate; D72.829 Elevated white blood cell count, unspecified; R79.89 Other specified abnormal findings of blood chemistry; D53.9 Nutritional anemia, unspecified; R11.2 Nausea with vomiting, unspecified; Z51.5 Encounter for palliative care; Z79.899 Other long term (current) drug therapy; Z66 Do not resuscitate; E86.0 Dehydration; J84.10 Pulmonary fibrosis, unspecified; Z91.041 Radiographic dye allergy status; Z87.442 Personal history of urinary calculi
CPT/HCPCS: 36415; 71010; 80053; 81001; 83605; 84145; 84484; 85025; 87040; 93005; 96361; 96372; 96374; 96375; 96376; 99284; A9270; G0378; G0379; J1100; J2405; J2550; J2765; J3010; J7050; 36000; 99218